=== PATIENT | male | born 1960 | race Caucasian/White ===

== ENCOUNTER 2021-03-23 05:57 | Outpatient (REF) | payer BC, SELFPAY ==
[2021-03-23 08:22] LABS: MANUAL DIFF FLAG NO
[2021-03-23 08:28] LABS: Basophils Absolute Auto 0.1 X10*3/uL (0.0-0.2); Basophils Percent Auto 2.2 % (0-2); Eosinophils Absolute Auto 0.4 X10*3/uL (0.0-0.4); Eosinophils Percent Auto 8.5 % (0-4); Hematocrit 41.3 % (42-52); Hemoglobin 13.7 g/dl (14.0-18.0); Lymphocytes Absolute Auto 1.2 X10*3/uL (1.2-4.9); Lymphocytes Percent Auto 26.2 % (20-40); Mean Corpuscular HGB Conc 33.2 g/dl (31.0-36.0); Mean Corpuscular Hemoglobin 31.2 pg (27.0-33.0); Mean Corpuscular Volume 94.1 fL (80-98); Mean Platelet Volume 10.3 fL (9.4-12.4); Monocytes Absolute Auto 0.5 X10*3/uL (0.1-1.2); Monocytes Percent Auto 10.8 % (2-11); Neutrophils Absolute Auto 2.3 X10*3/uL (2.0-8.3); Neutrophils Percent Auto 52.3 % (45-73); Platelet Count 189 X10*3/uL (160-400); Red Blood Count 4.39 X10*6/uL (4.60-5.80); Red Cell Distribution Width 11.8 % (11.0-16.0); White Blood Count 4.5 X10*3/uL (4.8-10.8)
[2021-03-23 08:45] LABS: Alanine Aminotransferase 19 U/L (0-40); Albumin Level 4.3 g/dL (3.5-5.0); Alkaline Phosphatase 75 U/L (39-117); Anion Gap 12 (12-20); Aspartate Amino Transferase 18 U/L (5-37); Bilirubin Total 0.6 mg/dL (0.0-1.0); Blood Urea Nitrogen 17 mg/dL (9-16); Carbon Dioxide 28 mmol/L (22-29); Chloride 107 mmol/L (96-108); Cholesterol 172 mg/dL; Estimated Glomerular Filt Rate > 60; Glucose Fasting 83 mg/dL (60-99); HDL Cholesterol 52 mg/dL; LDL Cholesterol Calculated 110 mg/dl; Potassium 4.2 mmol/L (3.3-5.1); Sodium 143 mmol/L (135-145); Total Protein 6.6 g/dL (6.5-8.0); Triglycerides 52 mg/dL
[2021-03-23 09:40] LABS: Prostate Specific Antigen Scr 5.22 ng/mL (<0.05-4.0)
== END 2021-03-23 05:58 | disposition home or self-care (01) ==
LOC: HO.LAB 05:57
PROVIDERS: PCP Internal Medicine; Visit Provider Internal Medicine
DX: Z00.00 Encounter for general adult medical examination without abnormal findings (principal); Z12.5 Encounter for screening for malignant neoplasm of prostate; R35.1 Nocturia; E11.9 Type 2 diabetes mellitus without complications
CPT/HCPCS: 36415; 80053; 80061; 84153; 85025

== ENCOUNTER → 2021-07-17 11:43 | Outpatient (REF) | payer BC, SELFPAY ==
--- NOTE | 2021-07-17 11:51 | ECG_ITS ---
Test Reason : preop Blood Pressure : / mmHG Vent. Rate : 058 BPM Atrial Rate : 058 BPM P-R Int : 176 ms QRS Dur : 090 ms QT Int : 410 ms P-R-T Axes : 083 064 061 degrees QTc Int : 402 ms Sinus bradycardia with Premature atrial complexes Otherwise normal ECG When compared with ECG of 06-MAR-2018 10:38, Premature atrial complexes are now Present Referred By: Issa Munoz Electronically Signed By:CINDI LUEVANO MD
[2021-07-17 11:56] LABS: MANUAL DIFF FLAG NO
[2021-07-17 12:10] LABS: Basophils Absolute Auto 0.1 X10*3/uL (0.0-0.2); Basophils Percent Auto 1.5 % (0-2); Eosinophils Absolute Auto 0.3 X10*3/uL (0.0-0.4); Eosinophils Percent Auto 7.2 % (0-4); Hematocrit 42.6 % (42.0-52.0); Hemoglobin 14.1 g/dl (14.0-18.0); Imm Gran Abs Auto 0.01 X10*3/uL (0.00-0.03); Imm Gran Pct Auto 0.2 % (0.0-0.4); Lymphocytes Absolute Auto 1.3 X10*3/uL (1.2-4.9); Lymphocytes Percent Auto 26.7 % (20-40); Mean Corpuscular HGB Conc 33.1 g/dl (31.0-36.0); Mean Corpuscular Hemoglobin 31.1 pg (27.0-33.0); Mean Platelet Volume 9.7 fL (9.4-12.4); Monocytes Absolute Auto 0.5 X10*3/uL (0.1-1.2); Monocytes Percent Auto 10.1 % (2-11); Neutrophils Absolute Auto 2.6 x10*3/uL (2.0-8.3); Neutrophils Percent Auto 54.3 % (45-73); Platelet Count 187 X10*3/uL (160-400); Red Blood Count 4.53 X10*6/uL (4.60-5.80); Red Cell Distribution Width 11.4 % (11.0-16.0); White Blood Count 4.8 X10*3/uL (4.8-10.8)
[2021-07-17 12:16] LABS: Prothrombin Time 10.8 SEC (9.9-13.0)
[2021-07-17 12:40] LABS: Anion Gap 10 (12-20); Blood Urea Nitrogen 17 mg/dL (9-16); Calcium 9.7 mg/dL (8.4-10.2); Carbon Dioxide 29 mmol/L (22-29); Chloride 107 mmol/L (96-108); Estimated Glomerular Filt Rate > 60; Glucose Random 107 mg/dL (60-115); Potassium 4.3 mmol/L (3.3-5.1); Sodium 142 mmol/L (135-145)
== END ==
LOC: HO.CARD 11:43
PROVIDERS: PCP Internal Medicine; Visit Provider Internal Medicine
DX: Z01.818 Encounter for other preprocedural examination (principal); Z13.0 Encounter for screening for diseases of the blood and blood-forming organs and certain disorders involving the immune mechanism; R51.9 Headache, unspecified
CPT/HCPCS: 36415; 80048; 85025; 85610; 93005

== ENCOUNTER 2021-07-18 13:06 | Outpatient (REF) | payer BC, SELFPAY ==
[2021-07-18 14:16] LABS: Appearance Urine CLEAR; Color Urine YELLOW; Glucose Urine UA NEG (NEG); Leukocyte Esterase Urine NEG (NEG); Nitrite Urine NEG (NEG); Urine Blood NEG (NEG); Urine Ketones NEG (NEG); Urine Protein NEG (NEG-TRACE)
== END 2021-07-18 13:07 | disposition home or self-care (01) ==
LOC: HO.LAB 13:06
PROVIDERS: Visit Provider Internal Medicine
DX: N39.0 Urinary tract infection, site not specified (principal)
CPT/HCPCS: 81003

== ENCOUNTER 2021-07-19 13:09 | Outpatient (REF) | payer BC, SELFPAY | END 2021-07-19 13:10 | disposition home or self-care (01) | LOC: HO.LAB 13:09 | PROVIDERS: Visit Provider Internal Medicine | DX: Z13.89 Encounter for screening for other disorder (principal) ==

== ENCOUNTER 2022-03-08 06:03 | Outpatient (REF) | payer BC, SELFPAY ==
[2022-03-08 06:08] LABS: MANUAL DIFF FLAG NO
[2022-03-08 07:24] LABS: Eosinophils Absolute Auto 0.2 X10*3/uL (0.0-0.4); Eosinophils Percent Auto 4.8 % (0-4); Hematocrit 41.2 % (42.0-52.0); Hemoglobin 14.1 g/dl (14.0-18.0); Imm Gran Abs Auto 0.02 X10*3/uL (0.00-0.03); Imm Gran Pct Auto 0.5 % (0.0-0.4); Lymphocytes Absolute Auto 1.3 X10*3/uL (1.2-4.9); Lymphocytes Percent Auto 29.9 % (20-40); Mean Corpuscular HGB Conc 34.2 g/dl (31.0-36.0); Mean Corpuscular Hemoglobin 31.8 pg (27.0-33.0); Mean Corpuscular Volume 92.8 fL (80.0-98.0); Mean Platelet Volume 9.5 fL (9.4-12.4); Monocytes Absolute Auto 0.6 X10*3/uL (0.1-1.2); Monocytes Percent Auto 13.3 % (2-11); Neutrophils Absolute Auto 2.1 x10*3/uL (2.0-8.3); Neutrophils Percent Auto 50.5 % (45-73); Platelet Count 182 X10*3/uL (160-400); Red Blood Count 4.44 X10*6/uL (4.60-5.80); Red Cell Distribution Width 11.5 % (11.0-16.0); White Blood Count 4.2 X10*3/uL (4.8-10.8)
[2022-03-08 07:44] LABS: Alanine Aminotransferase 19 U/L (0-40); Albumin Level 4.3 g/dL (3.5-5.0); Alkaline Phosphatase 66 U/L (39-117); Anion Gap 12 (12-20); Aspartate Amino Transferase 20 U/L (5-37); Bilirubin Total 0.7 mg/dL (0.0-1.0); Blood Urea Nitrogen 14 mg/dL (9-16); Calcium 8.8 mg/dL (8.4-10.2); Carbon Dioxide 29 mmol/L (22-29); Chloride 105 mmol/L (96-108); Cholesterol 178 mg/dL; Estimated Glomerular Filt Rate > 60; Glucose Fasting 84 mg/dL (60-99); HDL Cholesterol 57 mg/dL; LDL Cholesterol Calculated 107 mg/dl; Potassium 4.4 mmol/L (3.3-5.1); Sodium 142 mmol/L (135-145); Total Protein 6.5 g/dL (6.5-8.0); Triglycerides 73 mg/dL
== END 2022-03-08 06:04 | disposition home or self-care (01) ==
LOC: HO.LAB 06:03
PROVIDERS: PCP Internal Medicine; Visit Provider Internal Medicine
DX: Z13.0 Encounter for screening for diseases of the blood and blood-forming organs and certain disorders involving the immune mechanism (principal); E78.5 Hyperlipidemia, unspecified; I10 Essential (primary) hypertension
CPT/HCPCS: 36415; 80053; 80061; 85025

== ENCOUNTER 2022-03-26 10:42 | Outpatient (REF) | payer BC, SELFPAY ==
--- NOTE | ~2022-03-26 | US_ITS ---
EXAMINATION: US RETROPERITONEAL LIMITED (AORTA) CLINICAL INFORMATION: 61-year-old male with family history of abdominal aortic aneurysm.. COMPARISON: Abdominal aorta ultrasound from 03/07/2020. TECHNIQUE: Shaffer-scale, color Doppler and spectral Doppler evaluation of the abdominal aorta. FINDINGS: The abdominal aorta has normal caliber and smooth contour. No evidence of atherosclerotic disease, aneurysm or dissection. The peak systolic velocity measured in the distal abdominal aorta is 88 cm/sec. The measurements of the aorta in maximum AP and transverse dimensions respectively are as follows: Proximal: 2.5 x 2.4 cm. Mid: 2.1 x 2.3 cm. Distal: 1.9 x 2.0 cm. The common iliac arteries are normal. Each common iliac artery measures approximately 1.2 cm AP diameter. US/US abdominal aortic aneurysm IMPRESSION: No evidence of abdominal aorta aneurysm..
== END 2022-03-26 10:43 | disposition home or self-care (01) ==
LOC: HO.US 10:42
PROVIDERS: Visit Provider Internal Medicine
DX: Z13.6 Encounter for screening for cardiovascular disorders (principal)
CPT/HCPCS: 76706

== ENCOUNTER → 2022-04-09 10:51 | Outpatient (REF) | payer BC, SELFPAY | LOC: HO.SL 10:51 | PROVIDERS: PCP Internal Medicine; Visit Provider Internal Medicine | DX: G47.33 Obstructive sleep apnea (adult) (pediatric) (principal) | CPT/HCPCS: 95806 ==

== ENCOUNTER 2022-06-26 14:48 | Outpatient (REF) | payer BC, SELFPAY ==
--- NOTE | ~2022-06-26 | XR_ITS ---
EXAMINATION: XR SHOULDER, LEFT CLINICAL INFORMATION: Pain, left shoulder. COMPARISON: None TECHNIQUE: AP external rotation, Grashey, scapular Y, and axillary views of the left shoulder. FINDINGS: There is minimal reduction of glenohumeral and AC joint space with no periarticular spurring, erosive changes or loose bodies. No acute fracture, lytic or sclerotic process. The soft tissues are normal. XR/XR shoulder LT min 2V IMPRESSION: Minimal loss of joint space, ? early degenerative changes.
== END 2022-06-26 14:49 | disposition home or self-care (01) ==
LOC: HO.XRAY 14:48
PROVIDERS: PCP Internal Medicine; Visit Provider Internal Medicine
DX: M25.512 Pain in left shoulder (principal)
CPT/HCPCS: 73030

== ENCOUNTER → 2022-08-08 14:00 | Outpatient (BNVA) | payer BC, SELFPAY | PROVIDERS: PCP Internal Medicine; Visit Provider Physician Assistant | DX: M75.52 Bursitis of left shoulder (principal) | CPT/HCPCS: 20610; J1040 ==

== ENCOUNTER 2022-10-11 07:00 | Outpatient (RCR) | payer BC, SELFPAY ==
[2022-08-23 06:58] VITALS: BP 107/65; PULSE 84; O2SAT 97
--- NOTE | 2022-08-23 08:37 | MHC.PT.EP ---
[facility] [place] Office [place] Office [employer] Office [address] [place] [address] [address] [phone] F: [phone] F: [phone] F: [phone] F: [phone] Physical Therapy Plan of Care Date of Evaluation: Date of Surgery: Diagnosis: LEFT SHOULDER PAIN/ IMPINGEMENT Assessment: 62 YO Rt HAND DOMINANT MALE REF TO PT FOR LEFT SHOULDER PAIN/ IMPINGEMENT. 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 HE NOTES HIS Lt SH PAIN BEGAN IN 03/2020, INSIDUOUS ONSET. OBJECTIVELY, Pt HAS DECR POSTURAL AWARENESS-> (+) COMPENSATION W LUMBAR SPINE, Lt SH AND CERV ROM DEFICITS, (+) SOFT TISSUE TENSION AND IRRIT IN Lt SH COMPLEX, (+) IMPINGEMENT SIGNS Lt SH , AND PAIN IN LEFT ANTEROSUP GH REGION. HIS XRAY R/O SPURS. FUNCTIONALLY, Pt HAS DIFFIC SLEEPING, SXS WORSE AT NIGHT, LIMITED REACHING OVERHEAD OR POSTERIORLY, WELL DIFFIC DONNING SHIRTS / JACKETS/ TUCKING IN SHIRTS. Pt WOULD BENEFIT FROM PT TO ADDRESS THE ABOVE- ESPEC PAIN MGMT, DEV A PROGR HEP AND SELF-SX TECHN. Frequency and Duration: The patient will be seen 2 x WK x 5 WKS Short Term Goals: *DECREASE Lt SH PAIN TO A 2-3/10 *Pt DEMON WFL AROM CERVICAL AND Lt SH *IMPROVE POSTURAL AWARENESS W SITTING/ STANDING/ SIMUL ADLs *(-) Lt SH NEER'S SIGN Muffle Operator Goals: *Pt INDEP W PROGRESSIVE HEP AND SELF-SX MGMT TECHN *Pt RESUME REG ADLs, EVIDENT W IMPROVED SPADI SCORE (AT EVAL 81/130) *WFL STRENGTH Lt SH COMPLEX *Pt REPORT RETURN TO REG SLEEP Treatment Plan: Modalities to reduce pain, spasms and effusion. Manual therapy to restore motion and function. Therapeutic exercise to improve strength and flexibility. Neuromuscular re-education for posture and balance. Therapeutic activities to return to functional activities of daily living. Electronically signed by: DAPHNE DENSON,PT Please sign and return to therapist. Thank you for your referral.
--- NOTE | 2022-10-11 08:01 | MHC.PT.DC ---
[facility] [place] Office [place] Office [place] Office [address] Brittani Arias 140 [facility] [phone] F: [phone] F: [phone] F: [phone] F: [phone] Physical Therapy Discharge Report Diagnosis: LEFT SHOULDER PAIN/ IMPINGEMENT Date of Surgery: Date of Evaluation: 08/23/22 Date of Discharge: 10/11/22 Treatments to Date: 13 Cancellations to Date: 0 No Shows to Date: 0 Discharge Status: Achieved Goals Improved Function Independent with HEP Discharge Summary: Pt HAS PROGRESSED WELL IN PT- HE CAN NOW DON/DOFF SHIRTS/ JACKETS AND HAS OVERALL REDUCED PAIN AND LEFT SH LIMITATIONS W GENERAL ADLs- HE HAS RESIDUAL LEFT SH ROM LIMITATIONS , AND HE IS INDEP W HEP TO CONTINUE ADDRESSING THIS- Pt'S SPADI SCORE WAS 81/130 AT EVAL ON 08/23/22 AND AT D/C TODAY, 22/130. Electronically signed by: DAPHNE DENSON,PT Please sign and return to therapist. Thank you for your referral.
== END 2022-10-11 08:01 | disposition home or self-care (01) ==
LOC: HO.PT 07:00
PROVIDERS: PCP Internal Medicine; Visit Provider Physician Assistant
DX: M75.52 Bursitis of left shoulder (principal)
CPT/HCPCS: 97035; 97110; 97140; 97162

== ENCOUNTER 2023-03-06 08:47 | Outpatient (AMB) | payer BC, SELFPAY ==
--- NOTE | 2023-03-06 08:54 | MHC.PC.OV ---
Vital Signs 03/06/23 08:55 Height 5 ft 10 in Weight 153 lb 8 oz BMI 22.0 BP 100/60 Blood Pressure Location Lt brachial Position Sitting Pulse 54 Pulse Source Pulse Oximeter Pulse Oximetry (%) 98 Oxygen Delivery Method Room Air Intake Visit Reasons: Annual Exam Intake Note: Patient is here today for a physical. 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 Required: No Physical Medicine Teacher: Not Required per policy Accompanied by: Self / Same As Patient Allergies No Known Allergies Allergy (Verified 03/06/23 08:55) Tobacco use date assessed: 03/06/23 Dental Screening Dental Screen Date: 03/06/23 Did you have a dental visit in the last 12 months?: Yes Did you have a dental problem in the last 6 months where you did not have access to dental care?: No Was dental information given to patient?: Patient has dentist HPI Annual Exam HPI Details healthy; 1 s/p prostayectomy for CA; no recurrence [facility] Medical History (Updated 08/08/22 @ 15:24 by Gege Oliveira PA-C) Prostate cancer Surgical History (Updated 03/06/23 @ 08:58 by EVARISTO Chung) History of prostate surgery History of varicocele Family History Mother No problems noted. Father No problems noted. 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 1. Little interest or pleasure in doing things: not at all 2. Feeling down, depressed, or hopeless: not at all 3. Trouble falling or staying asleep, or sleeping too much: not at all 4. Feeling tired or having little energy: not at all 5. Poor appetite or overeating: not at all 6. Feeling bad about yourself - or that you are a failure or have let yourself or your family down: not at all 7. Trouble concentrating on things, such as reading the newspaper or watching television: not at all 8. Moving or speaking so slowly that other people could have noticed. Or the opposite - being so fidgety or restless that you have been moving around a lot more than usual: not at all 9. Thoughts that you would be better off or of hurting yourself in some way: not at all Total score: 0 Depression Screening Interpretation: Negative 66347 - PHQ-9 Billing: Yes Source: Developed by Drs. Adan Calvin, Chantel Zhu, Armond Meredith and colleagues, with an educational abigail from [employer]. Thrive Questionnaire Date Thrive assessed: 03/06/23 I am a: Patient What is your living situation today?: I have a steady place to live Within the past 12 months, did the food you bought not last and you didn't have the money to get more?: Never true Within the past 12 months, did you worry whether your food would run out before you got money to buy more?: Never true Do you have trouble paying for medicines?: No Do you have trouble getting transportation to medical appointments?: No Do you have trouble paying your heating and electricity bill?: No Do you have trouble taking care of your child, family member or friend?: No Do you have trouble with day-to-day activities such as bathing, preparing meals, shopping, managing finances, etc.?: No Are you currently unemployed and looking for a job?: No Are you interested in more education?: No Currently or been in a relationship where the following occur: no concerns reported AUDIT C Alcohol Use Questionnaire (AUDIT-C) 1. How often do you have a drink containing alcohol?: Never Total Score: 0 Score Reviewed/Action Taken: Yes CARYL-7 AMB Questionnaire CARYL-7 Date CARYL - 7 assessed: 03/06/23 Feeling nervous, anxious, or on edge: 0 = Not at all Not being able to stop or control worryin = Not at all Worrying too much about different things: 0 = Not at all Trouble relaxin = Not at all Being so restless that it is hard to sit still: 0 = Not at all Becoming easily annoyed or irritable: 0 = Not at all Feeling afraid as if something awful might happen: 0 = Not at all Total CARYL-7 score (0-4 normal; 5-9 mild; 10-14 moderate; 15-21 severe): 0 Source: Developed by Drs. Adan Calvin, Chantel Zhu, Armond Meredith and colleagues, with an educational abigail from [employer]. CARYL-7 Assessment Billing CARYL-7 Assessment Tool: CARYL-7 Assessment 17732 Review of Systems Const Denies chills, Denies fatigue, Denies headache(s) and Denies weight loss Eyes Denies change in vision, Denies diplopia and Denies eye pain ENT Denies vertigo, Denies dizziness, Denies headache(s) and Denies nasal discharge Card Denies chest pain, Denies rapid heart rate and Denies dyspnea on exertion Resp Denies chest congestion, Denies cough, Denies pain with cough and Denies dyspnea on exertion GI Denies abdominal pain, Denies hematochezia and Denies change in bowel habits Musc Denies myalgias, Denies arthralgias and Denies joint swelling Skin/Breast Denies lesions and Denies unusual bruising Neuro Denies vertigo, Denies dizziness, Denies headache(s) and Denies focal weakness Endo Denies fatigue Physical exam (Primary Care) Vital Signs: Last Vital Signs Pulse 54 03/06/23 08:55 BP 100/60 03/06/23 08:55 Pulse Ox 98 03/06/23 08:55 Oxygen Delivery Method Room Air 03/06/23 08:55 BMI result Body Mass Index 22.0 Tobacco/Smoking Status: Tobacco use Status Tobacco use date assessed 03/06/23 03/06/23 09:00 Patient Tobacco Use Status Never used Tobacco 03/06/23 09:00 e-Cigarette/Vaping Use Never Used 03/06/23 09:00 PHQ-9: PHQ-9 Score PHQ-9: Total score 0 03/06/23 09:00 Depression Screening Interpretation: Negative Thrive Assessment: Date of Thrive Assessment Date Thrive assessed 03/06/23 03/06/23 09:00 Currently or been in a relationship where the following occur: no concerns reported Advance Care Planning discussion: On file, no changes Forms completed: Health Care Proxy Const General: cooperative, healthy appearing and no acute distress Orientation/consciousness: oriented to person, oriented to place and oriented to time HENMT Head: Yes normal to inspection, Yes normocephalic and Yes atraumatic Mouth: Normal oral and palatal mucosa present and tongue normal Throat: Yes posterior oropharynx normal and Yes uvula midline Eyes General: appearance normal, both eyes and all related structures Neck Neck: Yes normal visual inspection, Yes full ROM and Yes no lymphadenopathy Thyroid: Thyroid normal Carotids: normal carotid upstroke Chest Chest palpation & inspection: normal inspection of the chest Resp Effort & Inspection: normal respiratory effort and able to speak in complete sentences Auscultation: clear to auscultation bilaterally Cardio Jugular venous distension: no JVD Palpation: normal PMI Rate: regular rate Rhythm: regular rhythm Heart sounds: S1 normal heart sound present and S2 normal heart sound present GI Inspection: Yes normal to inspection Palpation (GI): Soft to palpation and No hepatosplenomegaly present Auscultation: normal bowel sounds General: Yes no CVA tenderness Back/Spine/Pelvis Back: no CVA tenderness Skin General skin exam: no rashes or lesions noted Neuro General: oriented to person, oriented to place and oriented to time Extrem General: Yes normal to inspection and Yes full ROM Assessment and Plan Assessment & Plan (1) Physical exam, annual: Code(s): Z00.00 - Encounter for general adult medical examination without abnormal findings Plan: healthy; do labs (2) Prostate cancer: Code(s): C61 - Malignant neoplasm of prostate Orders: Orders Comprehensive [place]. Panel Fast Today N28.9 - Disorder of kidney and ureter, unspecified Lipid Panel Today E78.5 - Hyperlipidemia, unspecified Complete Blood Count Auto Diff Today D64.9 - Anemia, unspecified Coding Level of Care Code Est Pt Prev Care 40-64y(31081) Diagnoses Physical exam, annual Z00.00 Prostate cancer C61 Additional Codes CARYL-7 Assessment Billing - CARYL-7 Assessment Tool: CARYL-7 Assessment 44400 ([id number]) Vital Signs *Quality* - Advance Care Planning discussion: On file, no changes ([id number])
[2023-03-06 08:55] VITALS: BP 100/60; PULSE 54; O2SAT 98; BMI 22.0
== END 2023-03-06 09:28 | disposition home or self-care (01) ==
PROVIDERS: PCP Internal Medicine; Visit Provider Internal Medicine
DX: Z00.00 Encounter for general adult medical examination without abnormal findings (principal); C61 Malignant neoplasm of prostate
CPT/HCPCS: 1123F; 99396

== ENCOUNTER 2023-03-07 05:58 | Outpatient (REF) | payer BC, SELFPAY ==
[2023-03-07 06:14] LABS: MANUAL DIFF FLAG NO
[2023-03-07 07:22] LABS: Basophils Absolute Auto 0.1 X10*3/uL (0.0-0.2); Basophils Percent Auto 1.8 % (0-2); Eosinophils Absolute Auto 0.2 X10*3/uL (0.0-0.4); Eosinophils Percent Auto 4.9 % (0-4); Hematocrit 41.7 % (42.0-52.0); Imm Gran Abs Auto 0.01 X10*3/uL (0.00-0.03); Imm Gran Pct Auto 0.3 % (0.0-0.4); Lymphocytes Absolute Auto 1.1 X10*3/uL (1.2-4.9); Lymphocytes Percent Auto 27.6 % (20-40); Mean Corpuscular HGB Conc 33.6 g/dl (31.0-36.0); Mean Corpuscular Hemoglobin 31.5 pg (27.0-33.0); Mean Corpuscular Volume 93.7 fL (80.0-98.0); Mean Platelet Volume 9.8 fL (9.4-12.4); Monocytes Absolute Auto 0.5 X10*3/uL (0.1-1.2); Monocytes Percent Auto 12.8 % (2-11); Neutrophils Percent Auto 52.6 % (45-73); Platelet Count 194 X10*3/uL (160-400); Red Blood Count 4.45 X10*6/uL (4.60-5.80); Red Cell Distribution Width 11.4 % (11.0-16.0); White Blood Count 3.8 X10*3/uL (4.8-10.8)
[2023-03-07 07:38] LABS: Alanine Aminotransferase 15 U/L (0-40); Albumin Level 4.2 g/dL (3.5-5.0); Alkaline Phosphatase 62 U/L (39-117); Anion Gap 13 (12-20); Aspartate Amino Transferase 16 U/L (5-37); Bilirubin Total 0.9 mg/dL (0.0-1.0); Blood Urea Nitrogen 16 mg/dL (9-16); Calcium 9.2 mg/dL (8.4-10.2); Carbon Dioxide 26 mmol/L (22-29); Chloride 107 mmol/L (96-108); Cholesterol 172 mg/dL; Estimated Glomerular Filt Rate > 60; Glucose Fasting 83 mg/dL (60-99); HDL Cholesterol 50 mg/dL; LDL Cholesterol Calculated 108 mg/dl; Potassium 4.1 mmol/L (3.3-5.1); Sodium 142 mmol/L (135-145); Total Protein 6.8 g/dL (6.5-8.0); Triglycerides 73 mg/dL
== END 2023-03-07 05:59 | disposition home or self-care (01) ==
LOC: HO.LAB 05:58
PROVIDERS: PCP Internal Medicine; Visit Provider Internal Medicine
DX: N28.9 Disorder of kidney and ureter, unspecified (principal); E78.5 Hyperlipidemia, unspecified; D64.9 Anemia, unspecified
CPT/HCPCS: 36415; 80053; 80061; 85025

== ENCOUNTER 2024-03-09 08:40 | Outpatient (AMB) | payer BC, SELFPAY ==
--- NOTE | 2024-03-09 09:09 | A.OFFPC_ITS ---
Vital Signs 03/09/24 09:11 Height 5 ft 10 in Weight 150 lb BMI 21.5 BP 102/60 Blood Pressure Location Lt brachial Position Sitting Pulse 56 Pulse Source Pulse Oximeter Pulse Oximetry (%) 99 Oxygen Delivery Method Room Air Intake Visit Reasons: pe Intake Note: Patient is here today for a physical. Funeral Pre Need Consultant Required: No Accompanied by: Self / Same As Patient Allergies No Known Allergies Allergy (Verified 03/09/24 09:10) Tobacco use date assessed: 03/09/24 Fall risk assessment: No Falls in past year Last assessed Fall Risk: 03/09/24 Dental Screening Dental Screen Date: 03/09/24 Did you have a dental visit in the last 12 months?: Yes Did you have a dental problem in the last 6 months where you did not have access to dental care?: No Was dental information given to patient?: Patient has dentist HPI pe HPI Details healthy; concern re sleep apnea with apnea and snoring; FH AAA but he has no other risk factors; had an US a few years back which was normal [facility] Medical History (Updated 08/08/22 @ 15:24 by Gege Oliveira PA-C) Prostate cancer Surgical History History of prostate surgery History of varicocele Family History Mother No problems noted. Father No problems noted. 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 1. Little interest or pleasure in doing things: not at all 2. Feeling down, depressed, or hopeless: not at all 3. Trouble falling or staying asleep, or sleeping too much: not at all 4. Feeling tired or having little energy: not at all 5. Poor appetite or overeating: not at all 6. Feeling bad about yourself - or that you are a failure or have let yourself or your family down: not at all 7. Trouble concentrating on things, such as reading the newspaper or watching television: not at all 8. Moving or speaking so slowly that other people could have noticed. Or the opposite - being so fidgety or restless that you have been moving around a lot more than usual: not at all 9. Thoughts that you would be better off or of hurting yourself in some way: not at all Total score: 0 Depression Screening Interpretation: Negative Depression Screening Done: Yes 48937 - PHQ-9 Billing: Yes Source: Developed by Drs. Adan Calvin, Chantel Zhu, Armond Meredith and colleagues, with an educational abigail from [employer]. Thrive Questionnaire Date Thrive assessed: 03/09/24 I am a: Patient What is your living situation today?: I have a steady place to live Within the past 12 months, did the food you bought not last and you didn't have the money to get more?: Never true Within the past 12 months, did you worry whether your food would run out before you got money to buy more?: Never true Do you have trouble paying for medicines?: No Do you have trouble getting transportation to medical appointments?: No Do you have trouble paying your heating and electricity bill?: No Do you have trouble taking care of your child, family member or friend?: No Do you have trouble with day-to-day activities such as bathing, preparing meals, shopping, managing finances, etc.?: No Are you currently unemployed and looking for a job?: No Are you interested in more education?: No Please select the resources that you would like help with: None Currently or been in a relationship where the following occur: No concerns reported THRIVE Score: 0 AUDIT C Alcohol Use Questionnaire (AUDIT-C) 1. How often do you have a drink containing alcohol?: Never 3. How often do you have six or more drinks on one occasion?: Never Total Score: 0 Score Reviewed/Action Taken: Yes CARYL-7 AMB Questionnaire CARYL-7 Date CARYL - 7 assessed: 03/09/24 Feeling nervous, anxious, or on edge: 0 = Not at all Not being able to stop or control worryin = Not at all Worrying too much about different things: 0 = Not at all Trouble relaxin = Not at all Being so restless that it is hard to sit still: 0 = Not at all Becoming easily annoyed or irritable: 0 = Not at all Feeling afraid as if something awful might happen: 0 = Not at all Total CARYL-7 score (0-4 normal; 5-9 mild; 10-14 moderate; 15-21 severe): 0 Source: Developed by Drs. Adan Calvin, Chantel Zhu, Armond Meredith and colleagues, with an educational abigail from [employer]. CARYL-7 Assessment Billing CARYL-7 Assessment Tool: CARYL-7 Assessment 43858 Review of Systems Const Denies chills, Denies fatigue, Denies headache(s) and Denies weight loss Eyes Denies change in vision, Denies diplopia and Denies eye pain ENT Denies vertigo, Denies dizziness, Denies headache(s) and Denies nasal discharge Card Denies chest pain, Denies rapid heart rate and Denies dyspnea on exertion Resp Denies chest congestion, Denies cough, Denies pain with cough and Denies dyspnea on exertion GI Denies abdominal pain, Denies hematochezia and Denies change in bowel habits Musc Denies myalgias, Denies arthralgias and Denies joint swelling Skin/Breast Denies lesions and Denies unusual bruising Neuro Denies vertigo, Denies dizziness, Denies headache(s) and Denies focal weakness Endo Denies fatigue Physical exam (Primary Care) Vital Signs: Last Vital Signs Pulse 56 03/09/24 09:11 BP 102/60 03/09/24 09:11 Pulse Ox 99 03/09/24 09:11 Oxygen Delivery Method Room Air 03/09/24 09:11 BMI result Body Mass Index 21.5 Tobacco/Smoking Status: Tobacco use Status Tobacco use date assessed 03/09/24 03/09/24 09:13 Patient Tobacco Use Status Never used Tobacco 03/09/24 09:13 e-Cigarette/Vaping Use Never Used 03/09/24 09:13 PHQ-9: PHQ-9 Score PHQ-9: Total score 0 03/09/24 09:13 Depression Screening Interpretation: Negative Thrive Assessment: Date of Thrive Assessment Date Thrive assessed 03/09/24 03/09/24 09:13 Currently or been in a relationship where the following occur: No concerns reported Const General: cooperative, healthy appearing and no acute distress Orientation/consciousness: oriented to person, oriented to place and oriented to time HENMT Head: Yes normal to inspection, Yes normocephalic and Yes atraumatic Mouth: Normal oral and palatal mucosa present and tongue normal Throat: Yes posterior oropharynx normal and Yes uvula midline Eyes General: appearance normal, both eyes and all related structures Neck Neck: Yes normal visual inspection, Yes full ROM and Yes no lymphadenopathy Thyroid: Thyroid normal Carotids: normal carotid upstroke Chest Chest palpation & inspection: normal inspection of the chest Resp Effort & Inspection: normal respiratory effort and able to speak in complete sentences Auscultation: clear to auscultation bilaterally Cardio Jugular venous distension: no JVD Palpation: normal PMI Rate: regular rate Rhythm: regular rhythm Heart sounds: S1 normal heart sound present and S2 normal heart sound present GI Inspection: Yes normal to inspection Palpation (GI): Soft to palpation and No hepatosplenomegaly present Auscultation: normal bowel sounds General: Yes no CVA tenderness Back/Spine/Pelvis Back: no CVA tenderness Skin General skin exam: no rashes or lesions noted Neuro General: oriented to person, oriented to place and oriented to time Extrem General: Yes normal to inspection and Yes full ROM Assessment and Plan Assessment & Plan (1) Physical exam, annual: Code(s): Z00.00 - Encounter for general adult medical examination without abnormal findings Plan: do labs (2) Apnea: Code(s): R06.81 - Apnea, not elsewhere classified Plan: repeat sleep study Orders: Orders Thyroid Stimulating Hormone Today Z13.29 - Encounter for screening for other suspected endocrine disorder Complete Blood Count Auto Diff Today Z13.0 - Encounter for screening for diseases of the blood and blood-forming organs and certain disorders involving the immune mechanism Prostate Specific Antigen Scr Today Z00.00 - Encounter for general adult medical examination without abnormal findings RT home sleep study Today R06.81 - Apnea, not elsewhere classified Lipid Panel Today Z13.220 - Encounter for screening for lipoid disorders Comprehensive [place]. Panel Fast Today Z13.9 - Encounter for screening, unspecified Coding Level of Care Code Est Pt Prev Care 40-64y(81836) Diagnoses Physical exam, annual Z00.00 Apnea R06.81 Additional Codes CARYL-7 Assessment Billing - CARYL-7 Assessment Tool: CARYL-7 Assessment 49194 ([id number])
[2024-03-09 09:11] VITALS: BP 102/60; PULSE 56; O2SAT 99; BMI 21.5
== END 2024-03-09 09:32 | disposition home or self-care (01) ==
PROVIDERS: PCP Internal Medicine; Visit Provider Internal Medicine
DX: Z00.00 Encounter for general adult medical examination without abnormal findings (principal); R06.81 Apnea, not elsewhere classified
CPT/HCPCS: 99396

== ENCOUNTER 2024-03-10 06:03 | Outpatient (REF) | payer BC, SELFPAY ==
[2024-03-10 06:25] LABS: MANUAL DIFF FLAG NO
[2024-03-10 07:12] LABS: Basophils Absolute Auto 0.1 X10*3/uL (0.0-0.2); Basophils Percent Auto 1.5 % (0-2); Eosinophils Absolute Auto 0.3 X10*3/uL (0.0-0.4); Hematocrit 40.1 % (42.0-52.0); Hemoglobin 13.9 g/dl (14.0-18.0); Imm Gran Abs Auto 0.02 X10*3/uL (0.00-0.03); Imm Gran Pct Auto 0.4 % (0.0-0.4); Lymphocytes Absolute Auto 1.1 X10*3/uL (1.2-4.9); Lymphocytes Percent Auto 24.6 % (20-40); Mean Corpuscular HGB Conc 34.7 g/dl (31.0-36.0); Mean Corpuscular Hemoglobin 32.4 pg (27.0-33.0); Mean Corpuscular Volume 93.5 fL (80.0-98.0); Mean Platelet Volume 9.5 fL (9.4-12.4); Monocytes Absolute Auto 0.6 X10*3/uL (0.1-1.2); Monocytes Percent Auto 12.9 % (2-11); Neutrophils Absolute Auto 2.4 x10*3/uL (2.0-8.3); Neutrophils Percent Auto 53.6 % (45-73); Platelet Count 215 X10*3/uL (160-400); Red Blood Count 4.29 X10*6/uL (4.60-5.80); Red Cell Distribution Width 11.6 % (11.0-16.0); White Blood Count 4.6 X10*3/uL (4.8-10.8)
[2024-03-10 07:47] LABS: Alanine Aminotransferase 17 U/L (0-40); Albumin Level 4.3 g/dL (3.5-5.0); Alkaline Phosphatase 56 U/L (39-117); Anion Gap 10 (12-20); Aspartate Amino Transferase 19 U/L (5-37); Bilirubin Total 0.6 mg/dL (0.0-1.0); Blood Urea Nitrogen 19 mg/dL (9-16); Carbon Dioxide 30 mmol/L (22-29); Chloride 108 mmol/L (96-108); Cholesterol 168 mg/dL (<200); Estimated Glomerular Filt Rate > 60; Glucose Fasting 88 mg/dL (60-99); HDL Cholesterol 52 mg/dL (>40); LDL Cholesterol Calculated 105 mg/dL (<100); Potassium 3.9 mmol/L (3.3-5.1); Sodium 144 mmol/L (135-145); Total Protein 6.6 g/dL (6.5-8.0); Triglycerides 59 mg/dL (<150)
[2024-03-10 08:02] LABS: Thyroid Stimulating Hormone 1.96 uIU/mL (0.32-4.0)
[2024-03-10 08:13] LABS: Prostate Specific Antigen Scr < 0.10 ng/mL (<0.05-4.0)
== END 2024-03-10 06:04 | disposition home or self-care (01) ==
LOC: HO.LAB 06:03
PROVIDERS: PCP Internal Medicine; Visit Provider Internal Medicine
DX: Z00.00 Encounter for general adult medical examination without abnormal findings (principal); Z13.29 Encounter for screening for other suspected endocrine disorder; Z13.0 Encounter for screening for diseases of the blood and blood-forming organs and certain disorders involving the immune mechanism; Z13.220 Encounter for screening for lipoid disorders; Z13.9 Encounter for screening, unspecified; Z12.5 Encounter for screening for malignant neoplasm of prostate
CPT/HCPCS: 36415; 80053; 80061; 84153; 84443; 85025

== ENCOUNTER 2024-04-13 08:27 | Day surgery (SDC) | payer BC, SELFPAY ==
[2024-04-09 14:10] VITALS: BMI 20.7
--- NOTE | 2024-04-12 09:03 | P.CONAN_ITS ---
Documented by User: Sarah Richmond NP 04/12/24 09:04 HPI - Anesthesia Eval Consult details Narrative: 63yo M for Colonoscopy PMFSH Active Problems Active Problems: All Active Problems Subacromial bursitis of left shoulder joint (Acute) Shoulder pain (Acute) Pre-op exam (Acute) Physical exam, annual (Acute) Prostate cancer (Acute) Past Medical History Medical History Depression Prostate cancer Family History Family History Mother No problems noted. Father No problems noted. 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 Cognitive needs: No Hearing needs: No Vision needs: No Meds Allergies Allergy/AdvReac Type Severity Reaction Status Date / Time No Known Allergies Allergy Verified 04/13/24 09:05 Home Medications ?Medication ?Instructions ?Recorded ?Confirmed ?Last Taken ?Type multivitamin 1 tab PO DAILY 04/09/24 04/13/24 Unknown History Exam Height,Weight and Vital Signs: Height 5 ft 11.75 in Weight 68.719 kg Pertinent Lab Results Pertinent Lab Results: Laboratory Tests 03/10/24 06:24 WBC 4.6 L Hgb 13.9 L Hct 40.1 L Plt Count 215 Sodium 144 Potassium 3.9 Chloride 108 Carbon Dioxide 30 H BUN 19 H Creatinine 1.04 Assessment and Plan Assessment Anesthesia Assessment: Chart Reviewed Documented by User: Nikki Gardner MD 04/13/24 09:59 PMFSH Past Medical History Medical History Depression Prostate cancer Family History Family History Mother No problems noted. Father No problems noted. Family history of problems with anesthesia: No Surgical History Surgical History Hx of bilateral cataract extraction History of surgery Hx of right knee surgery H/O colonoscopy History of prostate surgery History of varicocele History of Problems with Anesthesia: No Social History Social History Housing: House Are you a primary healthcare insurance sales agent to a significant other at home: No Do you presently have visiting nurse or other home services: No Alcohol intake: never Patient Tobacco Use Status: Never used Tobacco e-Cigarette/Vaping Use: Never Used Second Hand Smoke Exposure: No service: No Current occupational status: employed 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 Cognitive needs: No Hearing needs: No Vision needs: No Meds Allergies Allergy/AdvReac Type Severity Reaction Status Date / Time No Known Allergies Allergy Verified 04/13/24 09:05 Home Medications ?Medication ?Instructions ?Recorded ?Confirmed ?Last Taken ?Type multivitamin 1 tab PO DAILY 04/09/24 04/13/24 Unknown History Exam Height,Weight and Vital Signs: Height 5 ft 11.75 in Weight 68.719 kg Vital Signs Temp Pulse Resp BP Pulse Ox O2 Del Method 04/13/24 09:32 97.5 F 58 18 114/54 L 100 Room Air Airway Mallampati Class: II TM Dist: >3cm Neck ROM: Full Loose/Missing/Broken Teeth: No Heart: RRR Lungs: CTAB Assessment and Plan Assessment Anesthesia Assessment: Anesthesia Plan Discussed and Chart Reviewed Final Anesthetic Review Family History of Problems with Anesthesia: No History of Problems with Anesthesia: No NPO: Yes ASA Class: II Final Preanesthetic Review: No Changes in Pt Med Stat, Meds/Allgs Chart Reviewed, Consent Obtained/Reviewed and Anes Risks/Benef Reviewed Patient Risk: Low Procedure Risk: Low Assessment/Block/Sedation in SS: Assess/Block/Sedation-SS Anesthetic Plan Anesthetic Plan: TIVA Disposition: Standard PACU
[2024-04-13 09:06] VITALS: BMI 19.8
[2024-04-13 09:32] VITALS: BP 114/54; PULSE 58; RESP 18; TEMP 36.4; O2SAT 100
--- NOTE | 2024-04-13 09:56 | P.HPSUR_ITS ---
Pre-Procedural Eval Section A - 24 Hr Update-Section A only Date of Service: 04/13/24 Section B - Complete if H&P > 30 days Chief Complaint: Encounter for screening for malignant neoplasm of Details of Present Illness: see H&P no changes Relevant Family History (Specify if Yes): No Relevant Social History: None Present Medications: see Short Stay Collaborative assessment Medical History: No relevant PMH History of Previous Operations: No relevant previous surgery Allergies: Allergies Allergy/AdvReac Type Severity Reaction Status Date / Time No Known Allergies Allergy Verified 04/13/24 09:05 Review of Systems Sugical H&P ROS: Negative: Constitution, Cardiovascular, Respiratory, Neurological, Psychiatric, Hem-Onc, Allergic/Immunologic, Gastrointestinal, Genitourinary, Musculoskeletal, Integumentary, Endocrine and Eyes/Ears/No se/Throat Exam Surgical H&P Exam: Normal: HEENT, Normal: Heart, Normal: Lungs, Normal: Extremities, Normal: Abdomen, Normal: Skin and Normal: Neurological Plan Diagnosis/Plan: Unchanged I have reviewed the history and physical and performed a pertinent physical examination on my patient. No changes have occurred unless specified. Time Spent With Patient Time: Total time managing care of this patient today ____ minutes.
[2024-04-13 10:57] VITALS: BP 106/58; PULSE 68; RESP 14; TEMP 36.3; O2SAT 100
[2024-04-13 11:02] VITALS: BP 101/60; PULSE 66; RESP 15; O2SAT 100
[2024-04-13 11:07] VITALS: BP 124/62; PULSE 56; RESP 14; O2SAT 100
[2024-04-13 11:12] VITALS: BP 114/71; PULSE 58; RESP 16; TEMP 36.2; O2SAT 100
--- NOTE | 2024-04-13 11:14 | OP_ITS ---
DATE OF SERVICE: 04/13/2024 SURGEON: Jv Lees MD INDICATIONS: Colon cancer screening. PREOPERATIVE DIAGNOSIS: POSTOPERATIVE DIAGNOSIS: PROCEDURE PERFORMED: Colonoscopy to the terminal ileum with biopsy and snare polypectomy. ESTIMATED BLOOD LOSS: COMPLICATIONS: ANESTHESIA: Monitored anesthesia care. ASSISTANTS: SPECIMENS: DESCRIPTION OF PROCEDURE: A history and physical was performed. The risks and benefits of the procedure were explained to the patient and informed consent was obtained. The patient was placed in the left lateral decubitus position. A digital rectal exam was performed and was found to be normal. The Olympus pediatric video colonoscope was introduced into the rectum and advanced to the cecum. The cecum was identified by transillumination, palpation, and identification of ileocecal valve. Examination was performed and the scope was removed. He tolerated the procedure well and was returned to recovery area in stable condition. FINDINGS: The terminal ileum was examined and appeared normal. The visualized colonic mucosa was normal. The quality of the prep was good. Two polyps were identified. These were located in the rectum. The 1st measured less than 5 mm and was removed with the biopsy forceps. The 2nd measured approximately 8 mm and removed with hot snare and recovered via suction. No other polyps were identified. Retroflexed examination showed small internal hemorrhoids. IMPRESSION: Colon polyps. RECOMMENDATION: Follow up the biopsy results. MD MESSI Andre/MINESH / [id number]
== END 2024-04-13 11:32 | disposition home or self-care (01) ==
PROVIDERS: PCP Internal Medicine; Visit Provider Internal Medicine Gastroenterology
PROC: 0DJD8ZZ Inspection of Lower Intestinal Tract, Via Natural or Artificial Opening Endoscopic (ICD-10-PCS; CPT 45378; principal; 2024-04-13 10:00)
DX: Z12.11 Encounter for screening for malignant neoplasm of colon (principal); Z83.719 Family history of colon polyps, unspecified; D12.8 Benign neoplasm of rectum; K64.8 Other hemorrhoids; F32.A Depression, unspecified; Z85.46 Personal history of malignant neoplasm of prostate; Z98.890 Other specified postprocedural states
CPT/HCPCS: 45385; 45380; 88305; J2704

== ENCOUNTER → 2024-04-21 09:53 | Outpatient (REF) | payer BC, SELFPAY | LOC: HO.SL 09:53 | PROVIDERS: PCP Internal Medicine; Visit Provider Internal Medicine | DX: G47.10 Hypersomnia, unspecified (principal) | CPT/HCPCS: 95806 ==

== ENCOUNTER → 2024-04-21 10:08 | Outpatient (BNV) | payer BC, SELFPAY | PROVIDERS: PCP Internal Medicine; Visit Provider Psychiatry & Neurology Neurology | DX: G47.10 Hypersomnia, unspecified (principal); R06.83 Snoring | CPT/HCPCS: 95806 ==

== ENCOUNTER 2024-11-15 09:19 | Outpatient (REF) | payer BC, MEDICARE, SELFPAY ==
--- OUTSIDE RECORDS SUMMARY | 2024-11-15 10:20 | XMS_ITS ---
Author Organization [facility] Address [address] [place] [address] Care Team Providers Care Gold Leaf Roller Name Role Phone Issa Munoz MD Primary Care Provider Jv Salinas Jr Encounters Encounter Location Date Provider Diagnosis [facility] [address] [place] [phone] 04/12/2024 Jv Lees Jr Plan Of Treatment No Information Progress Notes * REGINA DAVIS NDOB:[birth year] (63 yo M)Acc No.[id number]:04/12/2024 Patient:?REGINA DAVIS :1960???Age:63 Y???Sex:Male Address:[address] [place] [address] * true * Date:? Generated for Cordell patterson/[place]/eTransmitting on:?11/15/2024 10:20 AM EDT
--- OUTSIDE RECORDS SUMMARY | 2024-11-15 10:20 | XMS_ITS ---
Author Organization [facility] Address [address] [place] [address] Care Team Providers Care Sock Liner Name Role Phone Alexander MORRIS, Issa Primary Care Provider Jv Salinas Jr [phone] REASON FOR VISIT screening colon Encounters Encounter Location Date Provider Diagnosis [facility] [place] [place] [address] [place] [phone] 04/13/2024 Jv Lees Jr Colon cancer screening [...] REGINA DAVIS NDOB:[birth year] (64 yo M)Acc No.[id number]:04/13/2024 COLON WITH MAC Patient:?REGINA DAVIS Provider:?Jv Lees MD :1960???Age:63 Y???Sex:Male Mihir e:04/13/2024 Address:[address] [id number] Pcp:Issa Munoz MD Subjective: * Chief Complaints: * ???1. Screening colon. * Medical History:? Objective: * Vitals:? Assessment: * Assessment: 1.?Colon cancer screening - Z12.11 (Primary)???2.?FH: colon polyps - Z83.719???3.?Colon polyps - K63.5??? Plan: * Treatment: * Procedure Codes:?85113 LESIO N REMOVAL COLONOSCOPY, 52569 COLONOSCOPY AND BIOPSY, Modifiers: 59 * * The named appointment provid er may or may not be the originator of this progress note, and it is not deemed complete until electronically signed by the appointment provider. Sign off status: Pending * Provider:?Jv Lees MD Date:?0 04/13/2024 Generated for Cordell patterson/[place]/eTransmitting on:?11/15/2024 10:20 AM EDT
--- OUTSIDE RECORDS SUMMARY | 2024-11-15 10:21 | XMS_ITS | Patient Health Record ---
Author Organization [facility] Address [address] [place] [address] Care Team Providers Care Machine Shop Supervisor Name Role Phone Alexander MORRIS, Hardin Primary Care Provider Jv Salinas Jr [phone] Allergies No Known Allergies Results Component Value Reference Range Notes Pathology Reviewed date:04/22/2024 07:59:50 AM Interpretation: Performing Lab:[facility], [address] [place] [phone] Notes/Report: Name: Reginald Davis Age/Sex: 63/M : 1960 Unit#: [id number] Attend Dr: Jv Lees MD Re04/13/24 Status : [facility] Location: [place] Disch: SPEC : [id number] RECD : 04/13/24-1116 STATUS: PRINCESS VIVEROS NUM: [id number] MUKESH: 04/13/24-[address] [facility] [address]: Jv Lees MD ENTERED: 04/13/24-06 25 SP TYPE: Surgical OTHR DR: Issa Munoz MD ORDERED: HE Stain/6, Gross Micro L4/2 Diagnosis A. Rectum, #1 polyp ectomy: Hyperplastic mucosal polyp. B. Rectum, #2 polype ctomy: Sessile serrated lesion/polyp; negative for cytologic dysplasia. Clinical History Pre-Op Dx: Screening Post-Op Dx: Colon polyps Microscopic Description A, B. Microscopic se ctions reviewed. Material Received A. Rectal polyp #1 B. Rectal polyp #2 Gross Description Received in two parts. Part A: Received in formalin labeled ?rectal polyp #1? are 2 hyperemic and congested, fuentes, pink-red irregular t issue fragments each measuring 0.25 cm, submitted in toto in a cassette labeled A. Part B: Received in formalin labeled ?rectal polyp #2? is a 0.6 cm hyperemic and congested, pink-red papular tis santi fragment, bisected and entirely submitted in a cassette labeled B. CEDS Copies To: Jv Lees MD [facility] [address] [place], [place] [id number] CONTINUED ON NEXT PAGE Name: Reginald Davis Santi Age/Sex: 63/M : 1960 Unit#: [id number] Attend Dr: Jv Lees MD Re04/13/24 Status : [facility] Location: [place] Disch: SPEC : [id number] RECD : 04/13/24 STATUS: PRINCESS VIVEROS NUM: [id number] MUKESH: 04/13/24-[address] [facility] [address]: Jv Lees MD ENTERED: 04/13/24 SP TYPE: Surgical OTHR DR: Issa Munoz MD ORDERED: HE Stain/6, Gross Micro L4/2 Copies To: (Continued) Issa Munoz MD [facility] [place] [place] Primary Care,[address] [place] [address] Signed (si gnature on file) Ariel Bonds MD 04/14/24 1555 END OF REPORT Reason For Referral No Information Medications Medication SIG (Take, Route, Frequency, Duration) Notes Start Date End Date Status Multi Vitamin/Minerals - 1 tablet Orally once a day Active MiraLax (colon prep) 17 GM/SCOOP mixed with Gatorade or Crystal Light Orally begin at 5:00 p.m. the day before the procedure for 1 day 02/18/2024 Active Immunizations Vaccine Route Administration Date Status Comme nts Influenza Unknown 06/10/2018 Administered Influenza Unknown 05/27/2023 Administered Problems Problem Type SNOMED Code ICD Code Onset Dates Problem Status W/U Status Risk Notes Problem 498837466 Colon cancer screening (Z12.11) Active confirmed Problem 643872425 Encounter for other preprocedural examination (Z01.818) Active confirmed Problem 952547228 Family history o f colonic polyps (Z83.71) Active confirmed Vital Signs Temperature 97.1 degrees Fahrenheit 02/18/2024 Blood pressure diastolic 00 mm Hg 02/18/2024 Height 71.75 in 02/18/2024 Blood pressure systolic 000 mm Hg 02/18/2024 Weight 151 lb 8 oz lbs 02/18/2024 BMI 20.69 kg/m2 02/18/2024 Encounters Encounter Location Date Provider Diagnosis [facility] Outpatient [address] [place] [phone] 04/13/2024 Jv Lees Jr Colon cancer screening Z12.11 ; FH: colon polyps Z83.719 and Colon polyps K63.5 [facility] [address] [place] [phone] 02/18/2024 Jv Lees Jr Colon cancer screening Z12.11 ; Encounter for other preprocedural examination Z01.818 and Family history of colonic polyps Z83.71 [facility] [address] [place] [phone] 01/01/2024 Jv Lees Jr [facility] [address] [place] [phone] 04/12/2024 Jv Lees Jr [facility] [address] [place] [phone] 04/21/2024 Jv Lees Jr Assessments Encounter Date Diagnosis (ICD Code) Assessment Notes Treatment Notes Treatment Clinical Notes Section Notes 04/13/2024 Colon cancer screening (ICD-10 - Z12.11) 04/13/2024 FH: colon polyps (ICD-10 - Z83.719) 02/18/2024 Colon cancer screening (ICD-10 - Z12.11) Colonoscopy discharge material was printed 02/18/2024 Encounter for other preprocedural examination (ICD-10 - Z01.818) 04/13/2024 Colon polyps (ICD-10 - K63.5) 02/18/2024 Family history of colonic polyps (ICD-10 - Z83.71) Plan Of Treatment Future Test Test Name Order Date COLONOSCOPY 12/16/2013 COLONOSCOPY 01/13/2019 COLONOSCOPY 02/18/2024 Insurance Providers Payer Name Payer Address Payer Phone Subscriber Number Group Number Insured Name Patient Relationship to Insured Coverage Start Date Coverage End Date [facility] [address] [place] [address] [id number] REGINALD DAVIS Self - patient is the insured Medical (General) History Medical History History ICD Code Depression Colonoscopy 05/22, five-year followup fo r family history of polyps cataracts Prostate cancer Surgical History Surgery Date(Month/Year) knee surgery-right varocele Bilateral cataract repairs Prostatectomy 07/24
--- OUTSIDE RECORDS SUMMARY | 2024-11-15 10:21 | XMS_ITS ---
Author Organization [facility] Address [address] [place] [address] Care Team Providers Care Transcripter Name Role Phone Issa Munoz MD Primary Care Provider Jv Salinas Jr [phone] REASON FOR VISIT results of the procedure Encounters Encounter Location Date Provider Diagnosis [facility] [address] [place] [address] 04/21/2024 Jv Lees Jr Plan Of Treatment No Information Progress Notes * REGINA DAVIS NDOB:[birth year] (63 yo M)Acc No.[id number]:04/21/2024 Patient:?REGINA DAVIS :1960???Age:63 Y???Sex:Male Address:[address] [place] [address] * true * Date:? Generated for Printi ng/Fajosig/eTransmitting on:?11/15/2024 10:21 AM EDT
[2024-11-16 14:14] LABS: Rubella IgG Antibody 1.26 Index; Rubeola IgG (Measles) <13.50 AU/mL
== END 2024-11-15 09:20 | disposition home or self-care (01) ==
LOC: HO.WFDLDS 09:19
DX: Z00.00 Encounter for general adult medical examination without abnormal findings (principal)
CPT/HCPCS: 36415; 86735; 86762; 86765

== ENCOUNTER 2025-03-11 08:35 | Outpatient (AMB) | payer MEDICARE, SELFPAY ==
--- OUTSIDE RECORDS SUMMARY | 2024-04-13 06:00 | XMS_ITS ---
Author Organization [facility] Address [address] [place] [address] Care Team Providers Care Supervisor Type Photography Name Role Phone Issa Munoz MD Primary Care Provider Jv Salinas Jr [phone] REASON FOR VISIT screening colon Encounters Encounter Location Date Provider Diagnosis [facility] [place] [address] [place] [id number] 04/13/2024 Jv Lees Jr Colon cancer screening [...] REGINA DAVIS NDOB:[birth year] (64 yo M)Acc No.[id number]:04/13/2024 COLON WITH MAC Patient: REGINA REYNA Santi Provider: Sebastián Lees MD :1960 A ge:63 Y S ex:Male Date:04/13/2024 Address:[address] [id number] Pcp:Issa Munoz MD Subjective: * Chief Complaints: * 1 . Screening colon. * Medical History: Objective: * Vitals: Assessment: * Assessment: 1. C olon cancer screening - Z12.11 (Primary) 2 . F H: colon polyps - Z83.719 3 . C olon polyps - K63.5 Plan: * Treatment: * Procedure Codes: 4 5385 LESION REMOVAL COLONOSCOPY, 11451 COLONOSCOPY AND BIOPSY, Modifiers: 59 * * The named appointment provid er may or may not be the originator of this progress note, and it is not deemed complete until electronically signed by the appointment provider. Sign off status: Pending * Provider: Sebastián Lees MD Date: 0 04/13/2024 Generated for Cordell patterson/[place] on: 0 03/11/2025 08:48 AM EDT
--- NOTE | 2025-03-11 08:40 | A.OFFPC_ITS ---
Vital Signs 03/11/25 08:42 Height 5 ft 10 in Weight 144 lb 2 oz BMI 20.7 BP 112/58 L Blood Pressure Location Lt brachial Position Sitting Pulse 86 Pulse Source Pulse Oximeter Pulse Oximetry (%) 98 Oxygen Delivery Method Room Air Intake Visit Reasons: KERA Dr Munoz Syrup Mixer Helper Required: No Accompanied by: Self / Same As Patient Allergies No Known Allergies Allergy (Verified 03/11/25 09:11) Medication List - Last Reconciled 03/11/25 by Lisbet Serrano PA-C multivitamin 1 tab PO DAILY turmeric mg PO Tobacco use date assessed: 03/11/25 Fall risk assessment: No Falls in past year Last assessed Fall Risk: 03/11/25 Dental Screening Dental Screen Date: 03/11/25 Did you have a dental visit in the last 12 months?: Yes Did you have a dental problem in the last 6 months where you did not have access to dental care?: No Was dental information given to patient?: Patient has dentist HPI [facility]ER[facility] Dr Munoz HPI Details 64 year old female with past medical his tory of prostate cancer last seen by Dr. Munoz 03/2024 coming in for KERA/annual exam. Presenting with a wellness check and management of chronic conditions. Diagnosed and treated with surgery in [place], currently in remission for four years as per urologist Dr. Martinez. Grandfather, father, and brother had abdominal aortic aneurysms, all were smokers; patient is a non-smoker. He has had several in the past but does also mentioned having a pulsing sensation is abdomen and would like a repeat image at this time. Previous sleep study indicated borderline results; patient reports issues with mask fit during the test. PSA: ordered Eye exam: [facility] yearly Colonoscopy: 06/2024 repeat in 5 years Vaccines: [facility] Medical History Depression Prostate cancer Surgical History Hx of bilateral cataract extraction History of surgery Hx of right knee surgery H/O colonoscopy History of prostate surgery History of varicocele Family History Mother No problems noted. Father No problems noted. 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 1. Little interest or pleasure in doing things: not at all 2. Feeling down, depressed, or hopeless: not at all 3. Trouble falling or staying asleep, or sleeping too much: not at all 4. Feeling tired or having little energy: not at all 5. Poor appetite or overeating: not at all 6. Feeling bad about yourself - or that you are a failure or have let yourself or your family down: not at all 7. Trouble concentrating on things, such as reading the newspaper or watching television: not at all 8. Moving or speaking so slowly that other people could have noticed. Or the opposite - being so fidgety or restless that you have been moving around a lot more than usual: not at all 9. Thoughts that you would be better off or of hurting yourself in some way: not at all Total score: 0 Depression Screening Interpretation: Negative Depression Screening Done: Yes 17826 - PHQ-9 Billing: Yes Source: Developed by Drs. Adan Calvin, Chantel Zhu, Armond Meredith and colleagues, with an educational abigail from [employer]. Thrive Questionnaire Date Thrive assessed: 03/11/25 I am a: Patient What is your living situation today?: I have a steady place to live Within the past 12 months, did the food you bought not last and you didn't have the money to get more?: Never true Within the past 12 months, did you worry whether your food would run out before you got money to buy more?: Never true Do you have trouble paying for medicines?: No Do you have trouble getting transportation to medical appointments?: No Do you have trouble paying your heating and electricity bill?: No Do you have trouble taking care of your child, family member or friend?: No Do you have trouble with day-to-day activities such as bathing, preparing meals, shopping, managing finances, etc.?: No Are you currently unemployed and looking for a job?: No Are you interested in more education?: No Please select the resources that you would like help with: None Currently or been in a relationship where the following occur: No concerns reported THRIVE Score: 0 AUDIT C Alcohol Use Questionnaire (AUDIT-C) 1. How often do you have a drink containing alcohol?: Never Total Score: 0 CARYL-7 AMB Questionnaire CARYL-7 Date CARYL - 7 assessed: 03/11/25 Feeling nervous, anxious, or on edge: 0 = Not at all Not being able to stop or control worryin = Not at all Worrying too much about different things: 0 = Not at all Trouble relaxin = Not at all Being so restless that it is hard to sit still: 0 = Not at all Becoming easily annoyed or irritable: 0 = Not at all Feeling afraid as if something awful might happen: 0 = Not at all Total CARYL-7 score (0-4 normal; 5-9 mild; 10-14 moderate; 15-21 severe): 0 Source: Developed by Drs. Adan Calvin, Chantel Zhu, Armond Meredith and colleagues, with an educational abigail from [employer]. CARYL-7 Assessment Billing CARYL-7 Assessment Tool: CARYL-7 Assessment 26590 Review of Systems Const Denies body aches, Denies fatigue, Denies fever(s), Denies frequent falls, Denies headache(s) and Denies weakness Eyes Reports no additional complaints and Denies change in vision ENT Denies dysphagia, Denies dizziness, Denies facial pain, Denies headache(s), Denies nasal congestion and Denies odynophagia Card Denies chest pain, Denies syncope, Denies irregular heart rhythm, Denies leg edema, Denies lightheadedness and Denies dyspnea Resp Denies cough and Denies dyspnea GI Denies abdominal pain, Denies constipation, Denies dysphagia, Denies dyspepsia, Denies diarrhea, Denies nausea, Denies odynophagia and Denies vomiting Denies dysuria, Denies urinary frequency, Denies urinary hesitancy and Denies urinary urgency Musc Denies back pain and Denies myalgias Skin/Breast Reports system reviewed and no additional complaints, except as documented Neuro Denies dizziness, Denies syncope, Denies frequent falls, Denies headache(s) and Denies weakness Psych Reports no additional complaints Endo Denies fatigue Physical exam (Primary Care) Vital Signs: Last Vital Signs Pulse 86 03/11/25 08:42 BP 112/58 L 03/11/25 08:42 Pulse Ox 98 03/11/25 08:42 Oxygen Delivery Method Room Air 03/11/25 08:42 BMI result Body Mass Index 20.7 Tobacco/Smoking Status: Tobacco use Status Tobacco use date assessed 03/11/25 03/11/25 08:53 Patient Tobacco Use Status Never used Tobacco 03/11/25 08:53 e-Cigarette/Vaping Use Never Used 03/11/25 08:53 PHQ-9: PHQ-9 Score PHQ-9: Total score 0 03/11/25 09:12 Depression Screening Interpretation: Negative Thrive Assessment: Date of Thrive Assessment Date Thrive assessed 03/11/25 03/11/25 08:53 Currently or been in a relationship where the following occur: No concerns reported Const General: cooperative, healthy appearing, comfortable and no acute distress Orientation/consciousness: patient oriented x3 HENMT Head: Yes normocephalic Ears: hearing grossly normal bilaterally, external ears normal, TM's normal bilaterally and EAC's normal General nose exam: Normal external nose present Face and sinus: Yes normal facial exam and Yes sinuses nontender Mouth: Normal oral and palatal mucosa present and tongue normal Throat: Yes posterior oropharynx normal Eyes General: appearance normal, both eyes and all related structures Conjunctivae: conjunctivae normal Pupils: Equal, round and reactive pupils present EOM: EOMs intact bilaterally and No Nystagmus present Neck Neck: Yes normal visual inspection, Yes full ROM and Yes no lymphadenopathy Chest Chest palpation & inspection: normal inspection of the chest Resp Effort & Inspection: normal respiratory effort Auscultation: clear to auscultation bilaterally, no crackles, no rales, no rhonchi, no wheezes and breath sounds present Cardio Rate: regular rate Rhythm: regular rhythm Peripheral pulses: radial pulses present and dorsalis pedis present GI Inspection: Yes normal to inspection and No Abdominal wall edema Palpation (GI): Soft to palpation, not firm and nontender Auscultation: normal bowel sounds Rectal Exam - Male: Yes deferred General: Yes no CVA tenderness Back/Spine/Pelvis Back: no CVA tenderness Skin General skin exam: no rashes or lesions noted Neuro General: patient oriented x3 Cranial nerves: Yes Equal, round and reactive pupils present, Yes Midline tongue present, Yes Ability to bilaterally elevate shoulders present and No Nystagmus present Gait exam (Neuro): Normal gait present Extrem General: Yes normal to inspection, Yes full ROM, No no pedal edema and No edema Psych Speech and movement: Normal speech and movement present Affect: normal affect Insight: Good insight present (Psych) Judgement: Good judgement present (Psych) Coding Level of Care Code Est Pt Prev Care >65y(49361) Diagnoses Physical exam, annual Z00.00 Prostate cancer C61 Hypersomnolence G47.10 Family history of abdominal aortic aneurysm Z82.49 Additional Codes CARYL-7 Assessment Billing - CARYL-7 Assessment Tool: CARYL-7 Assessment 02800 ([id number]) PHQ-9 - 74739 - PHQ-9 Billing: Yes ([id number]) Assessment & Plan Assessment & Plan (1) Physical exam, annual: Code(s): Z00.00 - Encounter for general adult medical examination without abnormal findings Category: Medical Plan: Patient is up-to-date on all recommended routine screenings and vaccinations for his age. Healthy diet and regular exercise is encouraged. Ordered for updated blood work. Plan to follow up yearly or sooner as needed pending blood for re- evaluation (2) Prostate cancer: Comment: In remission 4 years - Urology Code(s): C61 - Malignant neoplasm of prostate Category: Medical Plan: Continue to follow up with [facility]. Ordered for repeat PSA. (3) Hypersomnolence: Code(s): G47.10 - Hypersomnia, unspecified Category: Medical Plan: Past sleep study was negative however patient states the mask was not fit right. Referral was placed to sleep Medicine today for further evaluation (4) Family history of abdominal aortic aneurysm: Code(s): Z82.49 - Family history of ischemic heart disease and other diseases of the circulatory system Category: Medical Plan: Patient was requesting additional ultrasound to rule out abdominal aortic aneurysm. He does have a strong family history with several first-degree relatives having abdominal aortic aneurysms does also mentioned having a new pulling sensation in the abdomen. Plan The patient will continue regular monitoring of prostate-specific antigen levels as part of his ongoing management for prostate cancer in remission. Given the family history of abdominal aortic aneurysms and the recent report of a pulsating sensation, an abdominal ultrasound will be ordered to rule out any potential issues. The patient will undergo a repeat sleep study to address the previous borderline results and issues with mask fit. Routine blood work will be conducted, including a fasting blood test, to monitor overall health and address the chronic low white blood cell count. The patient is advised to maintain his current exercise regimen and dietary habits to support his overall health. This note was constructed using voice recognition software. While every effort has been made to ensure accuracy and snow blower, still areas may have been included sometimes these areas may affect the content or meeting of the given symptoms. Total time spent caring for the patient today was 30 minutes. This includes time spent before the visit reviewing the chart, time spent during the visit, and time spent after the visit and documentation. Patient was informed and verbally consented to the use of an ambient scribe for clinic note documentation during this visit. Orders: Orders Free T4 (Free Thyroxine) Today G47.10 - Hypersomnia, unspecified, Z13.29 - Encounter for screening for other suspected endocrine disorder Lipid Panel Today Z13.220 - Encounter for screening for lipoid disorders Complete Blood Count Auto Diff Today D64.9 - Anemia, unspecified Comprehensive Met. Panel Today Z13.1 - Encounter for screening for diabetes mellitus PSA, Ultra Sensitive Today C61 - Malignant neoplasm of prostate, Z00.00 - Encounter for general adult medical examination without abnormal findings TSH reflex Free T4 Today G47.10 - Hypersomnia, unspecified, Z13.29 - Encounter for screening for other suspected endocrine disorder MMR IgG Measles Mumps Rubella Today Z00.00 - Encounter for general adult medical examination without abnormal findings US abdominal aortic aneurysm Today Z82.49 - Family history of ischemic heart disease and other diseases of the circulatory system Referrals Sleep Medicine Referral G47.10 - Hypersomnia, unspecified Sleep Medicine Referral G47.10 - Hypersomnia, unspecified
[2025-03-11 08:42] VITALS: BP 112/58; PULSE 86; O2SAT 98; BMI 20.7
== END 2025-03-11 09:39 | disposition home or self-care (01) ==
LOC: HO.HMCH 08:36
DX: C61 Malignant neoplasm of prostate (principal); G47.10 Hypersomnia, unspecified; Z82.49 Family history of ischemic heart disease and other diseases of the circulatory system

== ENCOUNTER → 2025-03-11 08:35 | Outpatient (BNVA) | payer MEDICARE, SELFPAY | DX: Z00.00 Encounter for general adult medical examination without abnormal findings (principal); C61 Malignant neoplasm of prostate; G47.10 Hypersomnia, unspecified; Z82.49 Family history of ischemic heart disease and other diseases of the circulatory system | CPT/HCPCS: 96127; 99212 ==

== ENCOUNTER 2025-03-15 05:59 | Outpatient (REF) | payer MEDICARE, SELFPAY ==
[2025-03-15 06:13] LABS: MANUAL DIFF FLAG NO
[2025-03-15 07:49] LABS: Hematocrit 38.6 % (42.0-52.0); Hemoglobin 13.2 g/dl (14.0-18.0); Imm Gran Abs Auto 0.02 X10*3/uL (0.00-0.03); Imm Gran Pct Auto 0.6 % (0.0-0.4); Lymphocytes Absolute Auto 1.1 X10*3/uL (1.2-4.9); Mean Corpuscular HGB Conc 34.2 g/dl (31.0-36.0); Mean Corpuscular Hemoglobin 31.7 pg (27.0-33.0); Mean Corpuscular Volume 92.8 fL (80.0-98.0); NRBC Abs Auto 0.000 X10*3/uL (0.0-0.012); NRBC Pct Auto 0.0 /100WBC (0.0-0.2); Platelet Count 172 X10*3/uL (160-400); Red Blood Count 4.16 X10*6/uL (4.60-5.80); White Blood Count 3.5 X10*3/uL (4.8-10.8)
[2025-03-15 08:33] LABS: Alanine Aminotransferase 19 U/L (0-40); Albumin Level 4.3 g/dL (3.5-5.0); Alkaline Phosphatase 60 U/L (39-117); Anion Gap 11 (12-20); Aspartate Amino Transferase 22 U/L (5-37); Blood Urea Nitrogen 14 mg/dL (9-16); Calcium 8.6 mg/dL (8.4-10.2); Carbon Dioxide 29 mmol/L (22-29); Chloride 108 mmol/L (96-108); Cholesterol 164 mg/dL (<200); Estimated Glomerular Filt Rate > 60; HDL Cholesterol 54 mg/dL (>40); Potassium 4.1 mmol/L (3.3-5.1); Sodium 144 mmol/L (135-145); Total Protein 6.4 g/dL (6.5-8.0); Triglycerides 66 mg/dL (<150)
[2025-03-15 08:51] LABS: Free T4 (Free Thyroxine) 1.09 ng/dL (0.71-1.85)
[2025-03-17 19:43] LABS: Rubeola IgG (Measles) >300.00 AU/mL
[2025-03-22 22:13] LABS: PSA, Ultra Sensitive <0.02 ng/mL
== END 2025-03-15 06:00 | disposition home or self-care (01) ==
LOC: HO.LAB 05:59
DX: Z00.00 Encounter for general adult medical examination without abnormal findings (principal); Z12.5 Encounter for screening for malignant neoplasm of prostate; Z13.1 Encounter for screening for diabetes mellitus; Z13.220 Encounter for screening for lipoid disorders; Z13.6 Encounter for screening for cardiovascular disorders; Z13.29 Encounter for screening for other suspected endocrine disorder; C61 Malignant neoplasm of prostate; D64.9 Anemia, unspecified; G47.10 Hypersomnia, unspecified
CPT/HCPCS: 36415; 80053; 80061; 84153; 84439; 84443; 85025; 86735; 86762; 86765

== ENCOUNTER 2025-03-28 12:51 | Outpatient (AMB) | payer MEDICARE, SELFPAY ==
[2025-03-28 13:26] VITALS: BP 108/60; PULSE 68; O2SAT 99; BMI 21.0
--- NOTE | 2025-03-28 13:26 | A.OFFVIS_ITS ---
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 HST in chart(AHI-<1, SIMEON- 91%) Witnessed snoring/apnea/gasping. Goes to bed around 9pm wakes up at 5am. No hard time falling sleep/staying asleep. Last test nose piece not sure if was accurate. first test was borderline. loking to see if maybe in lab PSG Allergies No Known Allergies Allergy (Verified 03/28/25 13:29) HPI Comments Details: 64 year old male is here for an evaluation of sleep difficulties, he is referred to us by his pcp. Marcia his helps with history. H/o Prostectomy in Jul 2021 and Mononucleosis spontaneous episodes. He goes to bed at 9pm and wakes up at 5am, will have one bathroom break.He denies multiple arousals. Pt. states his nudges him to wake up because he stops breathing at night will pause and gasp for air. He has had 2 sleep studies over the years, one showed mild roseanna, the one was inconclusive. He has trained himself to sleep on his side or on the belly. He denies snoring, not gasping for air. He has morning headaches, due to congestion and allergies. He denies bruxism. RLS symptoms he feels an uncomfortable sensation prior to bed, and can keep him up all night, and only when he naps during the daytime. He notices twitching and flying out of his upper extremity, notices increase in symptoms with dehydration. He denies numbness, tingling, cramping, denies radiation. Mood memory and diet is stable. mom 90 year old + stroke- +cancer metastasized to lung EBV? mono + FH+ melanoma, Sister 68 BRCA+ and Melanoma. PFSH Medical History Depression Prostate cancer Surgical History Hx of bilateral cataract extraction History of surgery Hx of right knee surgery H/O colonoscopy History of prostate surgery History of varicocele Family History Mother No problems noted. Father No problems noted. 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 Cognitive needs: No Hearing needs: No Vision needs: No Physical Exam Vital Signs: Last Vital Signs Pulse 68 03/28/25 13:26 BP 108/60 03/28/25 13:26 Pulse Ox 99 03/28/25 13:26 Oxygen Delivery Method Room Air 03/28/25 13:26 BMI result Body Mass Index 21.0 Const General: cooperative and comfortable Nutritional Appearance: average body habitus Orientation/consciousness: patient oriented x3 HEENT Face and sinus: Yes face symmetric Teeth and gingiva: other (mallampti score of 3) Eyes Pupils: Equal, round and reactive pupils present Neck Neck: Yes full ROM Resp Effort & Inspection: normal respiratory effort and able to speak in complete sentences Neuro General: patient oriented x3 and moves all extremities Cranial nerves: Yes Equal, round and reactive pupils present, Yes Normal accommodation reflex present, Yes Normal facial strength present, Yes Midline tongue present, Yes Ability to bilaterally rotate head present and Yes Ability to bilaterally elevate shoulders present Cognition (Neuro): normal cognition Gait exam (Neuro): Normal gait present Motor exam (neuro): 5/5 motor strength present throughout and Normal motor muscle tone present throughout Coordination: nxcukj-[id number] test normal Psych Appearance: grossly normal Mental Status: mental status grossly normal Thought process: Normal thought process present Thought content: Normal thought content present Assessment & Plan Assessment & Plan (1) Excessive daytime sleepiness: Code(s): G47.19 - Other hypersomnia Category: Medical Plan PSG to r/o ROSEANNA labs ferritin /homocysteine/ mma/ labs to r/o fatigue FH+ for cancer all siblings and he has multiple episodes of EBV/MONO. Orders: Orders RT PSG in-lab sleep study 03/28/25 G47.19 - Other hypersomnia Patient Instructions: Sleep Hygiene provided: set a scheduled bedtime and wake time to help regulate the circadian rhythm and balance the release of pituitary hormones. Sleep in a dark room, temperatures below 68 degrees, and no devices n bed. Limit caffeinated products 6 hours prior to bed, and limit fluids 2-4 hours prior to bed. Gentle night yoga, diffusing essential oils, and playing soft music can be relaxing. Coding Level of Care Code New Pt Level 4 (90001) Diagnoses Excessive daytime sleepiness G47.19 Sleep Questionnaire Difficulty falling asleep: No Difficulty staying asleep?: No Number of arousals: 1-2 Snoring: Yes Witnessed apneas: Yes Gasping arousals: No Nocturia: No GERD: No Vivid dreams: No Acting out dreams: No Abnormal behavior in sleep: No Abnormal movements in sleep: No Morning headaches: No Excessive daytime sleepiness: No Daytime naps: No Restless legs: Yes Hallucinations: No Sleep paralysis: No Drop attacks: No Sleep Study: Yes CPAP: No
--- OUTSIDE RECORDS SUMMARY | 2025-03-28 14:02 | XMS_ITS | Patient Health Record ---
Author Organization [facility] Address [address] [place] [address] Care Team Providers Care Sheetmetal Worker Name Role Phone Alexander MORRIS, Issa Primary Care Provider Jv Salinas Jr [phone] Allergies No Known Allergies Results Component Value Reference Range Notes Pathology Reviewed date:04/22/2024 07:59:50 AM Interpretation: Performing Lab:[facility], [address] [place] [id number] Notes/Report: Reason For Referral No Information Medications Medication [...] Problem Status W/U Status Risk Notes Problem [id number] Colon cancer screening (Z12.11) Active confirmed Problem 152487150 Encounter for other preprocedural examination (Z01.818) Active confirmed Problem 006163615 Family history o f colonic polyps (Z83.71) Active confirmed Encounters Encounter Location Date Provider Diagnosis [facility] [place] [address] [place] [phone] 04/13/2024 Jv Lees Jr Colon cancer screening Z12.11 ; FH: colon polyps Z83.719 and Colon polyps K63.5 [facility] [address] [place] [address] 04/12/2024 Jv Lees Jr [facility] [address] [place] [address] 04/21/2024 Jv Lees Jr Assessments Encounter Date Diagnosis (ICD Code) Assessment Notes Treatment Notes Treatment Clinical Notes Section Notes 04/13/2024 Colon cancer screening (ICD-10 - Z12.11) 04/13/2024 FH: colon polyps (ICD-10 - Z83.719) 04/13/2024 Colon polyps (ICD-10 - K63.5) Plan Of Treatment Future Test Test Name Order Date COLONOSCOPY 12/16/2013 COLONOSCOPY 01/13/2019 COLONOSCOPY 02/18/2024 Insurance Providers Payer Name Payer Address Payer Phone Subscriber Number Group Number Insured Name Patient Relationship to Insured Coverage Start Date Coverage End Date [facility] [employer] PROFESSIONAL CLAIMS [address] [place] [address] [phone] [id number] [facility] REGINA DAVIS Self - patient is the insured Medical (General) History Medical History History ICD Code Depression Colonoscopy 05/22, five-year followup fo r family history of polyps cataracts Prostate cancer Surgical History Surgery Date(Month/Year) knee surgery-right varocele Bilateral cataract repairs Prostatectomy 07/24
--- OUTSIDE RECORDS SUMMARY | 2025-03-28 14:02 | XMS_ITS | Encounter Summary ---
Author Organization [facility] Address [address] [place] [address] Phone Care Team Providers Care Bat Carrier Name Role Phone Issa Munoz MD Primary Care Provider Encounter Details Date Type Department Care Team (Late st Contact Info) Description 07/23/2021 Procedure Pass BWF Periop 1st floor [address] [place] [address] Social History Tobacco Use Types Packs/Day Years Used Date Smoking Tobacco: Never Smokeless Tobacco: Never Alcohol Use Standard Drinks/Week Comments Not Currently 0 (1 standard drink = 0.6 oz pur e alcohol) Sex and Gender Information Value Date Recorded Sex Assigned at Not on file Legal Sex Male 11:32 AM EDT Gender Identity Not on file Sexual Orientation Straight 07/20/2021 11 :14 AM EST documented as of this encounter Functional Status * Calculated C-SSRS Risk Score (Lifetime/Recent) Answer Date of Assessment Author No Risk Indicated 07/23/2021 11:00 PM Nimisha Hill RN * [place] Suicide Severity Rating Scale (Screener/Recent Self-Report) Question Answer Date of Assessment Author 1. Wish to be (Past 1 Month) No 021 11:00 PM Nimisha Hill RN 2. Non-Specific Active Suici hector Thoughts (Past 1 Month) No 07/23/2021 11:00 PM Nova Hill RN 6. Suicidal Behavior (Lifetime) No 11:00 PM Nimisha Hill RN documented as of this encounter Plan of Treatment Not on file documented as of this encounter Visit Diagnoses Not on filedocumented in this encounter Care Teams Bat Carrier Relationship Specialty Start Date End Date Issa Munoz MD [address] [place] [address] [place] [address] PCP - General Internal Medicine 05/23/21 documented as of this encounter Additional Source Comments The information contained in this document represents components of the legal health record. It is not the complete legal health record.[facility]
== END 2025-03-28 14:40 | disposition home or self-care (01) ==
LOC: HO.HSMS 12:52
PROVIDERS: Visit Provider Physician Assistant Medical
DX: G47.19 Other hypersomnia (principal)
CPT/HCPCS: 99204

== ENCOUNTER → 2025-03-28 12:51 | Outpatient (BNVA) | payer MEDICARE, SELFPAY | PROVIDERS: Visit Provider Physician Assistant Medical | DX: G47.19 Other hypersomnia (principal) | CPT/HCPCS: 99202 ==

== ENCOUNTER 2025-04-08 06:08 | Outpatient (REF) | payer MEDICARE, SELFPAY ==
--- OUTSIDE RECORDS SUMMARY | 2024-04-13 06:00 | XMS_ITS ---
Author Organization [facility] Address [address] [place] [address] Care Team Providers Care Underground Utility Locator Name Role Phone Issa Munoz MD Primary Care Provider Jv Salinas Jr [phone] REASON FOR VISIT screening colon Encounters Encounter Location Date Provider Diagnosis [facility] [place] [place] [address] [place] [address] [phone] 04/13/2024 Jv Lees Jr Colon cancer screening [...] REGINA DAVIS NDOB:[birth year] (64 yo M)Acc No.[id number]:04/13/2024 COLON WITH MAC Patient: REGINA REYNA Santi Provider: Sebastián Lees MD :1960 A ge:63 Y S ex:Male Date:04/13/2024 Address:[address] [id number] Pcp:Issa Munoz MD Subjective: * Chief Complaints: * 1 . Screening colon. * Medical History: Objective: * Vitals: Assessment: * Assessment: 1. C olon cancer screening - Z12.11 (Primary) 2 . F H: colon polyps - Z83.719 3 . C olon polyps - K63.5 Plan: * Treatment: * Procedure Codes: 4 5385 LESION REMOVAL COLONOSCOPY, 53859 COLONOSCOPY AND BIOPSY, Modifiers: 59 * * The named appointment provid er may or may not be the originator of this progress note, and it is not deemed complete until electronically signed by the appointment provider. Sign off status: Pending * Provider: Sebastián Lees MD Date: 04/13/2024 Generated for Cordell patterson/[place] on: 04/08/2025 06:10 AM EDT
--- OUTSIDE RECORDS SUMMARY | 2025-04-08 06:10 | XMS_ITS | Patient Health Record ---
Author Organization [facility] Address [address] [place] [address] Care Team Providers Care [employer] Combat Skills Name Role Phone Alexander MORRIS, Issa Primary Care Provider Jv Salinas Jr Allergies No Known Allergies Results Component Value Reference Range Notes Pathology Reviewed date:04/22/2024 07:59:50 AM Interpretation: Performing Lab:[facility], [address] [place] [id number] Notes/Report: Reason For Referral No Information Medications [...] Problem Status W/U Status Risk Notes Problem [id number] Colon cancer screening (Z12.11) Active confirmed Problem 326409803 Encounter for other preprocedural examination (Z01.818) Active confirmed Problem 236741215 Family history o f colonic polyps (Z83.71) Active confirmed Encounters Encounter Location Date Provider Diagnosis [facility] [place] [address] [place] [phone] 04/13/2024 Jv Lees Jr Colon cancer screening Z12.11 ; FH: colon polyps Z83.719 and Colon polyps K63.5 [facility] [address] [place] [address] 04/12/2024 Jv Lees Jr [facility] [address] [place] [address] 04/21/2024 Jv Lees Jr Assessments Encounter Date [...] Insured Coverage Start Date Coverage End Date [facility] [employer] PROFESSIONAL CLAIMS [address] [place] [address] [phone] [id number] [facility] REGINA DAVIS Self - patient is the insured Medical (General) History Medical History History ICD Code Depression Colonoscopy 05/22, five-year followup fo r family history of polyps cataracts Prostate cancer Surgical History Surgery Date(Month/Year) knee surgery-right varocele Bilateral cataract repairs Prostatectomy 07/24
--- OUTSIDE RECORDS SUMMARY | 2025-04-08 06:10 | XMS_ITS | Encounter Summary ---
Author Organization [facility] Address [address] [place] [address] Phone Care Team Providers Care Handle Finisher Name Role Phone Issa Munoz MD Primary Care Provider [phone] Encounter Details Date Type Department Care Team (Late st Contact Info) Description 07/23/2021 Procedure Pass BWF Periop 1st floor [address] [place] [address] Social History Tobacco Use Types Packs/Day Years [...] 07/23/2021 11:00 PM Nimisha Hill RN * [place] Suicide Severity Rating Scale (Screener/Recent Self-Report) Question [...] on filedocumented in this encounter Care Teams Handle Finisher Relationship Specialty Start Date End Date Issa Munoz MD [address] [place] [address] [place] [address] PCP - General Internal Medicine 05/23/21 documented as of this encounter Additional Source Comments The information contained in this document represents components of the legal health record. It is not the complete legal health record.[facility]
--- OUTSIDE RECORDS SUMMARY | 2025-04-08 06:11 | XMS_ITS | Clinical Summary ---
Author Organization [facility] Address [address] [place] [address] Phone Care Team Providers Care Gear Room Keeper Name Role Phone Issa Munoz MD Primary Care Provider Allergies No known active allergies Medications therapeutic multivitamin tablet Take 1 tablet by mouth daily. Active polyethylene glycol (MIRALAX) 17 gram packet Take 17 g by mouth daily as needed. 30 packet 1 Active Additional Information Patient not taking.Reported on 08/01/2021 senna (SENOKOT) 8.6 mg tablet Take 1 tablet by mouth 2 (two) times a day. 60 tablet 1 Active Additional Information Patient not taking.Reported on 08/01/2021 trospium (SANCTURA) 20 mg tablet Take 1 tablet (20 mg total) by mouth 2 (two) times a day. 20 tablet 1 Active Additional Information Patient not taking.Reported on 08/01/2021 Active Problems Problem Noted Date Diagnosed Date Prostate CA 07/23/2021 Anemia Overview (07/16/2021): h/o borderline anemia Immunizations Immunization Administration Dates Next Due COVID-19 (Pre-05/26) Moderna Vaccine, mRNA, PF 06/21/2021,12/07/2020,11/09/2020 Family History Medical History Relation Comments Heart disease Father No Known Problems Mother Relation Status Comments Father Alive Mother Alive Social History Tobacco Use Types Packs/Day Years Used Date Smoking Tobacco: Never Smokeless Tobacco: Never Alcohol Use Standard Drinks/Week Comments Not Currently 0 (1 standard drink = 0.6 oz pur e alcohol) Education Answer Date Recorded Are you interested in more education? Not on matty e 11/30/2022 Are you concerned about learning? Not on file 11/30/2022 No 11/30/2022 No 11/30/2022 Digital Access Answer Date Recorded No 12/29/2022 No 12/29/2022 No 12/29/2022 Reliable internet access at home? Not on file 12/29/2022 Device with a working camera? Not on file Sex and Gender Information Value Date Recorded Sex Assigned at Not on file Legal Sex Male 11:32 AM EDT Gender Identity Not on file Sexual Orientation Straight 07/20/2021 11 :14 AM EST Last Filed Vital Signs Vital Sign Reading Time Taken Comments Blood Pressure 109/62 08/01/2021 11:28 AM EST Pulse 89 08/01/2021 11:28 AM EST Temperature 37.3 C (99.1 F) 07/24/2021 12:42 PM EST Respiratory Rate 18 07/24/2021 12:42 PM EST Oxygen Saturation 99% 07/24/2021 12:42 PM EST Inhaled Oxygen Concentration - - Weight 68 kg (150 lb) 08/01/2021 11:28 AM EST Height 177.8 cm (5' 10 ) 08/01/2021 11:28 AM EST Body Mass Index 21.52 08/01/2021 11:28 AM EST Plan of Treatment Health Maintenance Due Date Last Done Comments LIPID PANEL 1959 DEPRESSION SCREENING 1971 HEPATITIS C SCREENING 1977 HIV ONE-TIME SCREENING (18-65 YEARS) 1977 PNEUMOCOCCAL VACCINES (50+ years) (1 of 2 - PCV) 1978 COLOGUARD 2004 COLONOSCOPY 2004 COLORECTAL CANCER SCREENING 2004 FIT TEST 2004 FOBT 2004 SIGMOIDOSCOPY 2004 VIRTUAL COLONOSCOPY 2004 ZOSTER VACCINES (2 of 2) 07/17/2020 05/22/2020 INFLUENZA VACCINE (#1) 2025 1, 05/10/2020, 05/21/2019, Additional history exists COVID-19 VACCINE (4 - 2024- season) 2025 06/21/2021, 12/07/2020, 11/09/2020 Adult Td,Tdap Booster 02/20/2027 02/20/2017, 017 RSV VACCINE (1 - 1-dose 75+ series) 2034 SMOKING STATUS SCREENING (Once After 26 Yrs) Completed 08/01/2021 HEPATITIS A VACCINES Aged Out No long er eligible based on patient's age to complete this topic HIB VACCINES Aged Out No longer eligi ble based on patient's age to complete this topic MENINGOCOCCAL VACCINES (ACWY) Aged Out No longer eligible based on patient's age to complete this topic MENINGOCOCCAL VACCINES (B) Aged Out N o longer eligible based on patient's age to complete this topic Medical Devices Not on file Insurance [facility] HMO POS [facility] HMO POS [facility] HMO POS [facility] HMO POS Advance Directives For more information, please contact: [phone] (9AM - 5PM Jessica/[facility], Friday-Friday) Documents on File Type Date Recorded Patient Globe Tester Expl anation Healthcare Proxy 07/23/2021 * Full Code (Latest Code Status on File) Date Activated Date Inactivated Comments 07/23/2021 9:36 PM Question Answer Comments Code Status Confirmed With: Other (specify below ) Care Teams Gear Room Keeper Relationship Specialty Start Date End Date Issa Munoz MD [address] [place] [address] [place] [address] PCP - General Internal Medicine 05/23/21 Additional Source Comments The information contained in this document represents components of the legal health record. It is not the complete legal health record.[facility]
[2025-04-08 08:15] LABS: Iron 119 mcg/dL (45-160); Magnesium 2.0 mg/dL (1.6-2.6); Percent Iron Saturation 50 % (15-50); Total Iron Binding Capacity 240 mcg/dL (228-428); Unsaturated Iron Binding 121 ug/dL
[2025-04-08 08:30] LABS: Ferritin 106 ng/mL (20-250)
== END 2025-04-08 06:09 | disposition home or self-care (01) ==
LOC: HO.LAB 06:08
PROVIDERS: Visit Provider Physician Assistant Medical
DX: R53.83 Other fatigue (principal); G47.10 Hypersomnia, unspecified; D64.9 Anemia, unspecified; Z20.828 Contact with and (suspected) exposure to other viral communicable diseases; G47.9 Sleep disorder, unspecified; Z13.6 Encounter for screening for cardiovascular disorders
CPT/HCPCS: 36415; 82728; 83090; 83540; 83735; 83921; 84207; 84425; 84443

== ENCOUNTER → 2025-04-26 20:30 | Outpatient (REF) | payer MEDICARE, SELFPAY ==
--- OUTSIDE RECORDS SUMMARY | 2024-04-13 06:00 | XMS_ITS ---
Author Organization [facility] Address [address] [place] [address] Care Team Providers Care Co Founder And Cto Name Role Phone Issa Munoz MD Primary Care Provider Jv Salinas Jr REASON FOR VISIT screening colon Encounters Encounter Location Date Provider Diagnosis [facility] Out[place] [address] [place] [phone] 04/13/2024 Jv Lees Jr Colon cancer screening [...] REGINA DAVIS NDOB:[birth year] (64 yo M)Acc No.[id number]:04/13/2024 COLON WITH MAC Patient: REGINA REYNA Santi Provider: Sebastián Lees MD :1960 A ge:63 Y S ex:Male Date:04/13/2024 Address:[address] [id number] Pcp:Issa Munoz MD Subjective: * Chief Complaints: * 1 . Screening colon. * Medical History: Objective: * Vitals: Assessment: * Assessment: 1. C olon cancer screening - Z12.11 (Primary) 2 . F H: colon polyps - Z83.719 3 . C olon polyps - K63.5 Plan: * Treatment: * Procedure Codes: 4 5385 LESION REMOVAL COLONOSCOPY, 46662 COLONOSCOPY AND BIOPSY, Modifiers: 59 * * The named appointment provid er may or may not be the originator of this progress note, and it is not deemed complete until electronically signed by the appointment provider. Sign off status: Pending * Provider: Sebastián Lees MD Date: 04/13/2024 Generated for Cordell patterson/[place] on: 04/26/2025 09:59 PM EDT
--- OUTSIDE RECORDS SUMMARY | 2025-04-26 21:59 | XMS_ITS | Encounter Summary ---
Author Organization [facility] Address [address] [place] [address] Phone Care Team Providers Care Health Care Legal Assistant Name Role Phone Issa Munoz MD Primary Care Provider [phone] Encounter Details Date Type Department Care Team (Late st Contact Info) Description 07/23/2021 Procedure Pass BWF Periop 1st floor [address] [place] [address] Social History Tobacco Use Types Packs/Day Years [...] 07/23/2021 11:00 PM Nimisha Hill RN * [place] Suicide Severity Rating Scale (Screener/Recent Self-Report) Question [...] on filedocumented in this encounter Care Teams Health Care Legal Assistant Relationship Specialty Start Date End Date Issa Munoz MD [address] [place] [address] [place] [address] PCP - General Internal Medicine 05/23/21 documented as of this encounter Additional Source Comments The information contained in this document represents components of the legal health record. It is not the complete legal health record.[facility]
--- OUTSIDE RECORDS SUMMARY | 2025-04-26 21:59 | XMS_ITS | Clinical Summary ---
Author Organization [facility] Address [address] [place] [address] Phone Care Team Providers Care Human Resources Safety Manager Name Role Phone Issa Munoz MD Primary Care Provider [phone] Allergies No known active allergies Medications therapeutic [...] Devices Not on file [facility] POS [facility] HMO POS [facility] HMO POS [facility] HMO POS [facility] HMO POS [facility] HMO POS Advance Directives For more information, please contact: [phone] (9AM - 5PM Jessica/[facility], Friday-Friday) Documents on File Type Date Recorded Patient Armhole Sewer Expl anation Healthcare Proxy 07/23/2021 * Full Code (Latest Code Status on File) Date Activated Date Inactivated Comments 07/23/2021 9:36 PM Question Answer Comments Code Status Confirmed With: Other (specify below ) Care Teams Human Resources Safety Manager Relationship Specialty Start Date End Date Issa Munoz MD [address] [place] [address] [place] [address] PCP - General Internal Medicine 05/23/21 Additional Source Comments The information contained in this document represents components of the legal health record. It is not the complete legal health record.[facility]
--- OUTSIDE RECORDS SUMMARY | 2025-04-26 21:59 | XMS_ITS | Patient Health Record ---
Author Organization [facility] Address [address] [place] [address] Care Team Providers Care Group Home Supervisor Name Role Phone Alexander MORRIS, Issa Primary Care Provider Jv Salinas Jr Unavailable Allergies No Known Allergies Reason For Referral No Information Medications Medication [...] Problem Status W/U Status Risk Notes Problem [id number] Colon cancer screening (Z12.11) Active confirmed Problem 610419701 Encounter for other preprocedural examination (Z01.818) Active confirmed Problem 711949642 Family history o f colonic polyps (Z83.71) Active confirmed Plan Of Treatment Future Test Test Name Order Date COLONOSCOPY 12/16/2013 COLONOSCOPY 01/13/2019 COLONOSCOPY 02/18/2024 Insurance Providers Payer Name Payer Address Payer Phone Subscriber Number Group Number Insured Name Patient Relationship to Insured Coverage Start Date Coverage End Date [employer] PROFESSIONAL CLAIMS [address] [place] [address] [phone] [id number] REGINA DAVIS Self - patient is the insured Medical (General) History Medical History History ICD Code Depression Colonoscopy 05/22, five-year followup fo r family history of polyps cataracts Prostate cancer Surgical History Surgery Date(Month/Year) knee surgery-right varocele Bilateral cataract repairs Prostatectomy 07/24
== END ==
LOC: HO.SL 20:30
PROVIDERS: Visit Provider Physician Assistant Medical
DX: G47.19 Other hypersomnia (principal)
CPT/HCPCS: 95810

== ENCOUNTER → 2025-04-26 21:08 | Outpatient (BNV) | payer MEDICARE, SELFPAY | PROVIDERS: Visit Provider Psychiatry & Neurology Neurology | DX: R40.0 Somnolence (principal) | CPT/HCPCS: 95810 ==

== ENCOUNTER 2025-05-03 15:18 | Outpatient (AMB) | payer MEDICARE, SELFPAY ==
--- OUTSIDE RECORDS SUMMARY | 2024-04-13 06:00 | XMS_ITS ---
Author Organization [facility] Address [address] [place] [address] Care Team Providers Care Metal Weigher Name Role Phone Issa Munoz MD Primary Care Provider Jv Salinas Jr [phone] REASON FOR VISIT screening colon Encounters Encounter Location Date Provider Diagnosis [facility] [place] [address] [place] [id number] 04/13/2024 Jv Lees Jr Colon cancer screening [...] REGINA DAVIS NDOB:[birth year] (64 yo M)Acc No.[id number]:04/13/2024 COLON WITH MAC Patient: REGINA REYNA Santi Provider: Sebastián Lees MD :1960 A ge:63 Y S ex:Male Date:04/13/2024 Address:[address] [id number] Pcp:Issa Munoz MD Subjective: * Chief Complaints: * 1 . Screening colon. * Medical History: Objective: * Vitals: Assessment: * Assessment: 1. C olon cancer screening - Z12.11 (Primary) 2 . F H: colon polyps - Z83.719 3 . C olon polyps - K63.5 Plan: * Treatment: * Procedure Codes: 4 5385 LESION REMOVAL COLONOSCOPY, 29955 COLONOSCOPY AND BIOPSY, Modifiers: 59 * * The named appointment provid er may or may not be the originator of this progress note, and it is not deemed complete until electronically signed by the appointment provider. Sign off status: Pending * Provider: Sebastián Lees MD Date: 04/13/2024 Generated for Cordell patterson/[place] on: 05/03/2025 04:36 PM EDT
[2025-05-03 15:19] VITALS: BP 100/50; PULSE 69; TEMP 36.7; O2SAT 98; BMI 21.2
--- NOTE | 2025-05-03 15:19 | MHC.OFFWIV ---
Intake Vital Signs 05/03/25 15:19 Height 5 ft 10 in Weight 148 lb BMI 21.2 BP 100/50 L Blood Pressure Location Rt brachial Position Sitting Pulse 69 Pulse Source Pulse Oximeter Temp 98.1 F Temp Source Oral Pulse Oximetry (%) 98 Oxygen Delivery Method Room Air Intake Visit Reasons: EP cut on right leg Intake Note: pt presents with open wound right lower leg today while cutting wood Patient Tobacco Use Status: Never used Tobacco Allergies No Known Allergies Allergy (Verified 05/03/25 15:24) Do you need a note to return to daycare/school/sports/work: No HPI HPI Comments History of Present Illness Details History of Present Illness - The patient is a 64-year-old male presenting with a laceration on the right lower leg. - The injury was caused by a piece of wood striking the ferguson while splitting wood, resulting in significant bleeding that ceased with pressure application. - He states that he was wearing jeans and didn't think anything of it until he saw some blood. - The patient experiences mild throbbing pain and swelling, with no numbness or tingling, and has an up-to-date tetanus prophylaxis. - He denies calf pain, ankle pain, numbness, tingling, or foot pain. Physical Exam General: Cooperative, healthy appearing, comfortable, no acute distress and well developed Orientation: Patient oriented x3 Cardiovascular: Regular rate and rhythm. Normal S1 and S2. Pulses are 1+ on the LE. Skin: No rashes or lesions noted. Small puncture wound noted to the right lower anterior leg. Bleeding is minimal and controlled. No swelling noted. Neuro: Sensation intact. Extremities: Normal to inspection except for a small puncture wound on the RLE. No TTP of the RLE. Strength is 5/5 on the LE. Strength is 5/5 on the LE. Ambulates with steady gait. Patient was informed and verbally consented to the use of an ambient scribe for clinic note documentation during this visit. [facility] Medical History Depression Prostate cancer Surgical History Hx of bilateral cataract extraction History of surgery Hx of right knee surgery H/O colonoscopy History of prostate surgery History of varicocele Family History Mother No problems noted. Father No problems noted. 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 Cognitive needs: No Hearing needs: No Vision needs: No Review of Systems Const All systems reviewed & are unremarkable except as noted in HPI and below Physical Exam Vital Signs: Last Vital Signs Temp 98.1 F 05/03/25 15:19 Pulse 69 05/03/25 15:19 BP 100/50 L 05/03/25 15:19 Pulse Ox 98 05/03/25 15:19 Oxygen Delivery Method Room Air 05/03/25 15:19 BMI result Body Mass Index 21.2 Office Procedures AMB Laceration Repair Laceration repair performed by: Ana Lilia Henley Location: right lower anterior leg Length: 1cm Irrigation: saline Preparation: betadine Wound exploration: none Deep closure: No Skin closure: glue Technique: Glue applied to the puncture wound. Topical treatment: dry Tetanus toxoid ordered: No Patient tolerated procedure: [place]: [place] [id number]-Dfuzyrtexx Repair <2.5cm Procedure code (CPT) selection complete Assessment & Plan Assessment & Plan (1) Puncture wound of leg not thigh, right: Code(s): S81.831A - Puncture wound without foreign body, right lower leg, initial encounter Qualifiers: Encounter type: initial encounter Qualified Code(s): S81.831A - Puncture wound without foreign body, right lower leg, initial encounter Plan: glu Plan Most likely a puncture wound to the leg, unsuturable tetanus is UTD plan - will glue to area - dry sterile dressing - tylenol or motrin as needed - keep area clean and dry and allow the glue to fall off on its own - advised to watch for signs of infection such as redness, warmth, discharge, etc - follow up with PCP Orders: Orders AMB Laceration Repair Today T14.8XXA - Other injury of unspecified body region, initial encounter Coding Level of Care Code Est Pt Level 4 (03890) Diagnoses Puncture wound of right lower extremity excluding thigh, initial encounter S81.831A Encounter type: initial encounter CPT Codes Office Procedure - Laceration Repair 1: 36246-Ymmtnwdyce Repair <2.5cm ([id number])
--- OUTSIDE RECORDS SUMMARY | 2025-05-03 16:36 | XMS_ITS | Patient Health Record ---
Author Organization [facility] Address [address] [place] [address] Care Team Providers Care Allergist/Md Name Role Phone Alexander MORRIS, Issa Primary [...] Problem Status W/U Status Risk Notes Problem [id number] Colon cancer screening (Z12.11) Active confirmed Problem 389852431 Encounter for other preprocedural examination (Z01.818) Active confirmed Problem 092170722 Family history o f colonic polyps (Z83.71) Active confirmed Plan Of Treatment Future Test Test Name Order Date COLONOSCOPY 12/16/2013 COLONOSCOPY 01/13/2019 COLONOSCOPY 02/18/2024 Insurance Providers Payer Name Payer Address Payer Phone Subscriber Number Group Number Insured Name Patient Relationship to Insured Coverage Start Date Coverage End Date O [employer] PROFESSIONAL CLAIMS [address] [place] [address] [phone] [id number] 400 REGINA DAVIS Self - patient is the insured Medical (General) History Medical History History ICD Code Depression Colonoscopy 05/22, five-year followup fo r family history of polyps cataracts Prostate cancer Surgical History Surgery Date(Month/Year) knee surgery-right varocele Bilateral cataract repairs Prostatectomy 07/24
--- OUTSIDE RECORDS SUMMARY | 2025-05-03 16:37 | XMS_ITS | Clinical Summary ---
Author Organization [facility] Address [address] [place] [address] Phone Care Team Providers Care Director Of Diversity And Inclusion Name Role Phone Issa Munoz MD Primary Care Provider [phone] Allergies No known active allergies Medications therapeutic [...] Devices Not on file [facility] O [facility] H[facility] POS [facility] HMO POS [facility] H[facility] POS [facility] HMO POS [facility] H[facility] POS [facility] HMO POS Advance Directives For more information, please contact: [phone] (9AM - 5PM Jessica/[facility], Friday-Friday) Documents on File Type Date Recorded Patient Medical Reception Specialist Expl anation Healthcare Proxy 07/23/2021 * Full Code (Latest Code Status on File) Date Activated Date Inactivated Comments 07/23/2021 9:36 PM Question Answer Comments Code Status Confirmed With: Other (specify below ) Care Teams Director Of Diversity And Inclusion Relationship Specialty Start Date End Date Issa Munoz MD [address] [place] [address] [place] [address] PCP - General Internal Medicine 05/23/21 Additional Source Comments The information contained in this document represents components of the legal health record. It is not the complete legal health record.[facility]
--- OUTSIDE RECORDS SUMMARY | 2025-05-03 16:37 | XMS_ITS | Encounter Summary ---
Author Organization [facility] Address [address] [place] [address] Phone Care Team Providers Care Data Services Developer Name Role Phone Issa Munoz MD Primary Care Provider [phone] Encounter Details Date Type Department Care Team (Late st Contact Info) Description 07/23/2021 Procedure Pass BWF Periop 1st floor [address] [place] [address] Social History Tobacco Use Types Packs/Day Years [...] 07/23/2021 11:00 PM Nimisha Hill RN * [place] Suicide Severity Rating Scale (Screener/Recent Self-Report) Question [...] on filedocumented in this encounter Care Teams Data Services Developer Relationship Specialty Start Date End Date Issa Muonz MD [address] [place] [address] [place] [address] PCP - General Internal Medicine 05/23/21 documented as of this encounter Additional Source Comments The information contained in this document represents components of the legal health record. It is not the complete legal health record.[facility]
== END 2025-05-03 16:39 | disposition home or self-care (01) ==
PROVIDERS: Visit Provider Physician Assistant Medical
DX: S81.831A Puncture wound without foreign body, right lower leg, initial encounter (principal)

== ENCOUNTER → 2025-05-03 15:18 | Outpatient (BNVA) | payer MEDICARE, SELFPAY | PROVIDERS: Visit Provider Physician Assistant Medical | DX: S81.831A Puncture wound without foreign body, right lower leg, initial encounter (principal); W22.8XXA Striking against or struck by other objects, initial encounter; Y93.89 Activity, other specified; Y92.9 Unspecified place or not applicable; Y99.9 Unspecified external cause status | CPT/HCPCS: 12001; 99212 ==

== ENCOUNTER 2025-05-06 08:18 | Outpatient (REF) | payer MEDICARE, SELFPAY ==
--- OUTSIDE RECORDS SUMMARY | 2024-04-13 06:00 | XMS_ITS ---
Author Organization [facility] Address [address] [place] [address] Care Team Providers Care Medical Office Asst Name Role Phone Issa Munoz MD Primary Care Provider Jv Salinas Jr REASON FOR VISIT screening colon Encounters Encounter Location Date Provider Diagnosis [facility] [place] [address] [place] [id number] 04/13/2024 Jv Lees Jr Colon cancer screening [...] REGINA DAVIS NDOB:[birth year] (64 yo M)Acc No.[id number]:04/13/2024 COLON WITH MAC Patient: REGINA REYNA Santi Provider: Sebastián Lees MD :1960 A ge:63 Y S ex:Male Date:04/13/2024 Address:[address] [id number] Pcp:Issa Munoz MD Subjective: * Chief Complaints: * 1 . Screening colon. * Medical History: Objective: * Vitals: Assessment: * Assessment: 1. C olon cancer screening - Z12.11 (Primary) 2 . F H: colon polyps - Z83.719 3 . C olon polyps - K63.5 Plan: * Treatment: * Procedure Codes: 4 5385 LESION REMOVAL COLONOSCOPY, 19488 COLONOSCOPY AND BIOPSY, Modifiers: 59 * * The named appointment provid er may or may not be the originator of this progress note, and it is not deemed complete until electronically signed by the appointment provider. Sign off status: Pending * Provider: Sebastián Lees MD Date: 0 04/13/2024 Generated for Cordell patterson/[place] on: 08:37 AM EDT
--- NOTE | ~2025-05-06 | US_ITS ---
CLINICAL HISTORY: Z82.49 - Family history of ischemic heart disease and other diseases of ... US Abdomen (AAA) Comparison: None provided Findings: Aorta proximal 2.8 cm. Aorta mid 1.8 cm. Aorta distal 1.8 cm. Right common iliac artery 0.8 cm. Left common iliac artery 1.1 cm. IMPRESSION: 1. No abdominal aortic aneurysm. This document has been electronically signed by: James Chapa MD on 05/07/2025 08:45:29
--- OUTSIDE RECORDS SUMMARY | 2025-05-06 08:37 | XMS_ITS | Patient Health Record ---
Author Organization [facility] Address [address] [place] [address] Care Team Providers Care Pruner Name Role Phone Alexander MORRIS, Issa Primary [...] Problem Status W/U Status Risk Notes Problem [id number] Colon cancer screening (Z12.11) Active confirmed Problem 974344388 Encounter for other preprocedural examination (Z01.818) Active confirmed Problem 224625341 Family history o f colonic polyps (Z83.71) Active confirmed Plan Of Treatment Future Test Test Name Order Date COLONOSCOPY 12/16/2013 COLONOSCOPY 01/13/2019 COLONOSCOPY 02/18/2024 Insurance Providers Payer Name Payer Address Payer Phone Subscriber Number Group Number Insured Name Patient Relationship to Insured Coverage Start Date Coverage End Date O [employer]UE [employer] PROFESSIONAL CLAIMS [address] [place] [address] [phone] [id number] 400 REGINA DAVIS Self - patient is the insured Medical (General) History Medical History History ICD Code Depression Colonoscopy 05/22, five-year followup fo r family history of polyps cataracts Prostate cancer Surgical History Surgery Date(Month/Year) knee surgery-right varocele Bilateral cataract repairs Prostatectomy 07/24
--- OUTSIDE RECORDS SUMMARY | 2025-05-06 08:38 | XMS_ITS | Clinical Summary ---
Author Organization [facility] Address [address] [place] [address] Phone Care Team Providers Care Supervisor Alteration Workroom Name Role Phone Issa Munoz MD Primary Care Provider [phone] Allergies No known active allergies Medications therapeutic [...] Devices Not on file [facility] H[facility] POS [facility] H[facility] POS Advance Directives For more information, please contact: [phone] (9AM - 5PM Jessica/[facility], Friday-Friday) Documents on File Type Date Recorded Patient Apartment Maintenance Worker Expl anation Healthcare Proxy 07/23/2021 * Full Code (Latest Code Status on File) Date Activated Date Inactivated Comments 07/23/2021 9:36 PM Question Answer Comments Code Status Confirmed With: Other (specify below ) Care Teams Supervisor Alteration Workroom Relationship Specialty Start Date End Date Issa Munoz MD [address] [place] [address] [place] [address] PCP - General Internal Medicine 05/23/21 Additional Source Comments The information contained in this document represents components of the legal health record. It is not the complete legal health record.[facility]
--- OUTSIDE RECORDS SUMMARY | 2025-05-06 08:38 | XMS_ITS | Encounter Summary ---
Author Organization [facility] Address [address] [place] [address] Phone Care Team Providers Care Pipe Caulker Name Role Phone Issa Munoz MD Primary Care Provider [phone] Encounter Details Date Type Department Care Team (Late st Contact Info) Description 07/23/2021 Procedure Pass BWF Periop 1st floor [address] [place] [address] Social History Tobacco Use Types Packs/Day Years [...] 07/23/2021 11:00 PM Nimisha Hill RN * [place] Suicide Severity Rating Scale (Screener/Recent Self-Report) Question [...] on filedocumented in this encounter Care Teams Pipe Caulker Relationship Specialty Start Date End Date Issa Munoz MD [address] [place] [address] [place] [address] PCP - General Internal Medicine 05/23/21 documented as of this encounter Additional Source Comments The information contained in this document represents components of the legal health record. It is not the complete legal health record.[facility]
== END 2025-05-06 08:19 | disposition home or self-care (01) ==
LOC: HO.HMGCX 08:18
DX: R19.8 Other specified symptoms and signs involving the digestive system and abdomen (principal); Z82.49 Family history of ischemic heart disease and other diseases of the circulatory system
CPT/HCPCS: 76706

== ENCOUNTER → 2025-05-06 08:20 | Outpatient (BNV) | payer MEDICARE, SELFPAY | PROVIDERS: Visit Provider Specialist | DX: Z82.49 Family history of ischemic heart disease and other diseases of the circulatory system (principal) | CPT/HCPCS: 76706 ==

== ENCOUNTER 2025-05-16 07:40 | Outpatient (AMB) | payer MEDICARE, SELFPAY ==
--- OUTSIDE RECORDS SUMMARY | 2024-04-13 06:00 | XMS_ITS ---
Author Organization [facility] Address [address] [place] [address] Care Team Providers Care Hairspring Ii Inspector Name Role Phone Issa Munoz MD Primary Care Provider Jv Salinas Jr [phone] REASON FOR VISIT screening colon Encounters Encounter Location Date Provider Diagnosis [facility] [place] [address] [place] [id number] 04/13/2024 Jv Lees Jr Colon cancer screening [...] REGINA DAVIS NDOB:[birth year] (64 yo M)Acc No.[id number]:04/13/2024 COLON WITH MAC Patient: REGINA REYNA Santi Provider: Sebastián Lees MD :1960 A ge:63 Y S ex:Male Date:04/13/2024 Address:[address] [id number] Pcp:Issa Munoz MD Subjective: * Chief Complaints: * 1 . Screening colon. * Medical History: Objective: * Vitals: Assessment: * Assessment: 1. C olon cancer screening - Z12.11 (Primary) 2 . F H: colon polyps - Z83.719 3 . C olon polyps - K63.5 Plan: * Treatment: * Procedure Codes: 4 5385 LESION REMOVAL COLONOSCOPY, 62359 COLONOSCOPY AND BIOPSY, Modifiers: 59 * * The named appointment provid er may or may not be the originator of this progress note, and it is not deemed complete until electronically signed by the appointment provider. Sign off status: Pending * Provider: Sebastián Lees MD Date: 0 04/13/2024 Generated for Cordell patterson/[place] on: 07:44 AM EDT
[2025-05-16 07:42] VITALS: BP 94/50; PULSE 64; RESP 16; TEMP 36.7; O2SAT 99; BMI 21.5
--- NOTE | 2025-05-16 07:42 | AM.OFFWIN_ITS ---
Intake Vital Signs 3 05/16/25 07:42 Height 5 ft 10 in Weight 150 lb BMI 21.5 BP 94/50 L Blood Pressure Location Lt brachial Position Sitting Respiration 16 Pulse 64 Pulse Source Pulse Oximeter Temp 98.1 F Temp Source Oral Pulse Oximetry (%) 99 Oxygen Delivery Method Room Air Intake Visit Reasons: EP-lt side groin possible hearnia Intake Note: Pt is here today noticed two lumps on Lt side of groin Patient Tobacco Use Status: Never used Tobacco Allergies No Known Allergies Allergy (Verified 05/03/25 15:24) HPI HPI Comments 2 History of Present Illness0 Details 64 y/o Male patient who presents to the walk in clinic with c/o Left Groin Bulging and tenderness. Reports that Friday evening he noticed/[place] small Tender lumps on left groin. States by Friday the lumps were gone and pain resolved. Reports Feeling the lumps again Friday and this morning. Denies any Urinary symptoms. H/o Prostate CA with Total Prostatectomy 4 years ago. He does follow with Urology yearly and so far all testings have been negative. Denies any recent heavy lifting. No prior h/o Groin Hernia. [facility] Medical History (Updated 05/16/25 @ 07:59 by Megan Bedoya NP) Lt groin pain Depression Prostate cancer Surgical History Hx of bilateral cataract extraction History of surgery Hx of right knee surgery H/O colonoscopy History of prostate surgery History of varicocele Family History Mother No problems noted. Father No problems noted. 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 Cognitive needs: No Hearing needs: No Vision needs: No Review of Systems Const All systems reviewed & are unremarkable except as noted in HPI and below Physical Exam Vital Signs: Last Vital Signs Temp 98.1 F 05/16/25 07:42 Pulse 64 05/16/25 07:42 Resp 16 05/16/25 07:42 BP 94/50 L 05/16/25 07:42 Pulse Ox 99 05/16/25 07:42 Oxygen Delivery Method Room Air 05/16/25 07:42 BMI result Body Mass Index 21.5 Const General: no acute distress Nutritional Appearance: well nourished Orientation/consciousness: patient oriented x3 General: Yes no CVA tenderness Penis: normal penis Meatus: meatus normal Scrotum: scrotum normal, not edematous, not erythematous, no scrotal swelling and no varicoceles Male genitals images: 2 1. Palpable Small lump?lymph nodes, mild TTP. 2. Palpable Small lump?lymph nodes, mild TTP. Back/Spine/Pelvis Back: no CVA tenderness Neuro General: patient oriented x3, gait normal and moves all extremities Psych Speech and movement: Normal speech and movement present Results AMB Urinalysis, Automated 2 UA Leukoctes 0 Jd/uL Last Edit by Shantelle Joseph CMA on 05/16/25 08:13 UA Nitrite Negative Last Edit by Shantelle Joseph, BELINDA on 05/16/25 08:13 UA Urobilinogen 0.2 mg/dL Last Edit by Shantelle Joseph CMA on 05/16/25 08:13 UA Protein 0 mg/dL Last Edit by Shantelle Joseph, BELINDA on 05/16/25 08:13 UA pH 6.0 Last Edit by Shantelle Joseph CMA on 05/16/25 08:13 UA Blood 0 Niles/uL Last Edit by Shantelle Joseph CMA on 05/16/25 08:13 UA Specific [place] 1.020 Last Edit by Shantelle Joseph, BELINDA on 05/16/25 08:13 UA Ketone Negative Last Edit by Shantelle Joseph CMA on 05/16/25 08:13 UA Bilirubin 0 mg/dL Last Edit by Shantelle Joseph, BELINDA on 05/16/25 08:13 UA Glucose 0 mg/dL Last Edit by Shantelle Joseph CMA on 05/16/25 08:13 Assessment & Plan Assessment & Plan (1) Lt groin pain: Code(s): R10.32 - Left lower quadrant pain Plan: DDx's: Hernia vs Lymphadenopathy vs UTI. Urinalysis Negative - will still send Urine for C&S. Ordered Pelvic/Scrotum Ultrasound. May take NSAIDs for pain relief. Orders: Orders 2 AMB Urinalysis Automated Today Z13.9 - Encounter for screening, unspecified US scrotum Today R10.32 - Left lower quadrant pain US pelvic limited Today R10.32 - Left lower quadrant pain UA CC w/rflx Micro + Cult Today R10.32 - Left lower quadrant pain Coding Level of Care Code Est Pt Level 4 (86062) Diagnoses Lt groin pain R10.32 Time Spent (min) 20
--- OUTSIDE RECORDS SUMMARY | 2025-05-16 07:44 | XMS_ITS | Clinical Summary ---
Author Organization [facility] Address [address] [place] [address] Phone Care Team Providers Care Shift Mechanic Name Role Phone Issa Munoz MD Primary Care Provider [phone] Allergies No known active allergies Medications therapeutic [...] Devices Not on file [facility] POS Advance Directives For more information, please contact: [phone] (9AM - 5PM Jessica/[facility], Friday-Friday) Documents on File Type Date Recorded Patient Production Cost Estimator Expl anation Healthcare Proxy 07/23/2021 * Full Code (Latest Code Status on File) Date Activated Date Inactivated Comments 07/23/2021 9:36 PM Question Answer Comments Code Status Confirmed With: Other (specify below ) Care Teams Shift Mechanic Relationship Specialty Start Date End Date Issa Munoz MD [address] [place] [address] [place] [address] PCP - General Internal Medicine 05/23/21 Additional Source Comments The information contained in this document represents components of the legal health record. It is not the complete legal health record.[facility]
--- OUTSIDE RECORDS SUMMARY | 2025-05-16 07:44 | XMS_ITS | Encounter Summary ---
Author Organization [facility] Address [address] [place] [address] Phone Care Team Providers Care Flat Breakdown Processor Name Role Phone Issa Munoz MD Primary Care Provider [phone] Encounter Details Date Type Department Care Team (Late st Contact Info) Description 07/23/2021 Procedure Pass BWF Periop 1st floor [address] [place] [address] Social History Tobacco Use Types Packs/Day Years [...] 07/23/2021 11:00 PM Nimisha Hill RN * [place] Suicide Severity Rating Scale (Screener/Recent Self-Report) Question [...] on filedocumented in this encounter Care Teams Flat Breakdown Processor Relationship Specialty Start Date End Date Issa Munoz MD [address] [place] [address] [place] [address] PCP - General Internal Medicine 05/23/21 documented as of this encounter Additional Source Comments The information contained in this document represents components of the legal health record. It is not the complete legal health record.[facility]
--- OUTSIDE RECORDS SUMMARY | 2025-05-16 07:44 | XMS_ITS | Patient Health Record ---
Author Organization [facility] Address [address] [place] [address] Care Team Providers Care Mid Level Game Designer Name Role Phone Alexander MORRIS, Issa Primary [...] at 5:00 p.m. the day before the procedure; Duration: 1 day 02/18/2024 Active Immunizations Vaccine Route Administration Date Status Comme nts Influenza Unknown 06/10/2018 Administered Influenza Unknown 05/27/2023 Administered Problems Problem Type SNOMED Code ICD Code Onset Dates Problem Status W/U Status Risk Notes Problem Colon cancer screening (723428061) Colon cancer screening (Z12.11) Active confirmed Problem Pre-procedure evaluation check (946552367) Encounter for other preprocedural examination (Z01.818) Active confirmed Problem Family history of polyp of colon (279535492) Family history of colonic polyps (Z83.71) Active confirmed Plan Of Treatment Future Test Test Name Order Date COLONOSCOPY 12/16/2013 COLONOSCOPY 01/13/2019 COLONOSCOPY 02/18/2024 Insurance Providers Payer Name Payer Address Payer Phone Subscriber Number Group Number Insured Name Patient Relationship to Insured Coverage Start Date Coverage End Date [facility] [address] [place] [address] [phone] [id number] 400 REGINA DAVIS Self - patient is the insured Medical (General) History Medical History History ICD Code Depression Colonoscopy 05/22, five-year followup fo r family history of polyps cataracts Prostate cancer Surgical History Surgery Date(Month/Year) knee surgery-right varocele Bilateral cataract repairs Prostatectomy 07/24
== END 2025-05-16 09:05 | disposition home or self-care (01) ==
PROVIDERS: Visit Provider Nurse Practitioner Family
DX: Z13.9 Encounter for screening, unspecified (principal); R10.32 Left lower quadrant pain

== ENCOUNTER 2025-05-16 07:40 | Outpatient (REF) | payer MEDICARE, SELFPAY | END 2025-05-16 07:41 | disposition home or self-care (01) | LOC: HO.LAB 07:40 | PROVIDERS: Visit Provider Nurse Practitioner Family | DX: R10.32 Left lower quadrant pain (principal); Z13.89 Encounter for screening for other disorder | CPT/HCPCS: 81003; 87086; 99212 ==

== ENCOUNTER 2025-05-25 15:16 | Outpatient (REF) | payer MEDICARE, SELFPAY ==
--- OUTSIDE RECORDS SUMMARY | 2024-04-13 06:00 | XMS_ITS ---
Author Organization [facility] Address [address] [place] [address] Care Team Providers Care Intellectual Property Lawyer Name Role Phone Issa Munoz MD Primary Care Provider Jv Salinas Jr [phone] REASON FOR VISIT screening colon Encounters Encounter Location Date Provider Diagnosis [facility] [address] [place] [phone] 04/13/2024 Jv Lees Jr Colon cancer screening Z12.11 ; FH: colon polyps Z83.719 and Colon polyps K63.5 Assessments Encounter Date Diagnosis (ICD Code) Assessment Notes Treatment Notes Treatment Clinical Notes Section Notes 04/13/2024 Colon cancer screening (ICD-10 - Z12.11) 04/13/2024 FH: colon polyps (ICD-10 - Z83.719) 04/13/2024 Colon polyps (ICD-10 - K63.5) Plan Of Treatment No Information Progress Notes * REGINA DAVIS NDOB:[birth year] (64 yo M)Acc No.[id number]:04/13/2024 COLON WITH MAC Patient: REGINA REYNA Santi Provider: Sebastián Lees MD :1960 A ge:63 Y S ex:Male Date:04/13/2024 Address:[address] [id number] Pcp:Issa Munoz MD Subjective: * Chief Complaints: * 1 . Screening colon. * Medical History: Objective: * Vitals: Assessment: * Assessment: 1. C olon cancer screening - Z12.11 (Primary) 2 . F H: colon polyps - Z83.719 3 . C olon polyps - K63.5 Plan: * Treatment: * Procedure Codes: 4 5385 LESION REMOVAL COLONOSCOPY, 69119 COLONOSCOPY AND BIOPSY, Modifiers: 59 * * The named appointment provid er may or may not be the originator of this progress note, and it is not deemed complete until electronically signed by the appointment provider. Sign off status: Pending * Provider: Sebastián Lees MD Date: 0 04/13/2024 Generated for Cordell patterson/[place] on: 09:31 PM EDT
--- OUTSIDE RECORDS SUMMARY | 2025-05-25 21:31 | XMS_ITS | Patient Health Record ---
Author Organization [facility] Address [address] [place] [address] Care Team Providers Care Arch Support Technician Name Role Phone Alexander MORRIS, Issa Primary [...] Status Risk Notes Problem Colon cancer screening (511625967) Colon cancer screening (Z12.11) Active confirmed Problem Pre-procedure evaluation check (932015210) Encounter for other preprocedural examination (Z01.818) Active confirmed Problem Family history of polyp of colon (870534452) Family history of colonic polyps (Z83.71) Active confirmed Plan Of Treatment Future Test Test Name Order Date COLONOSCOPY 12/16/2013 COLONOSCOPY 01/13/2019 COLONOSCOPY 02/18/2024 Insurance Providers Payer Name Payer Address Payer Phone Subscriber Number Group Number Insured Name Patient Relationship to Insured Coverage Start Date Coverage End Date [facility] [address] [place] [address] [phone] [id number] 400 REGINA DAVIS Self - patient is the insured Medical (General) History Medical History History ICD Code Depression Colonoscopy 05/22, five-year followup fo r family history of polyps cataracts Prostate cancer Surgical History Surgery Date(Month/Year) knee surgery-right varocele Bilateral cataract repairs Prostatectomy 07/24
--- OUTSIDE RECORDS SUMMARY | 2025-05-25 21:31 | XMS_ITS | Encounter Summary ---
Author Organization [facility] Address [address] [place] [address] Phone Care Team Providers Care Matrix Worker Name Role Phone Issa Munoz MD Primary Care Provider [phone] Encounter Details Date Type Department Care Team (Late st Contact Info) Description 07/23/2021 Procedure Pass BWF Periop 1st floor [address] [place] [address] Social History Tobacco Use Types Packs/Day Years [...] 07/23/2021 11:00 PM Nimisha Hill RN * [place] Suicide Severity Rating Scale (Screener/Recent Self-Report) Question [...] on filedocumented in this encounter Care Teams Matrix Worker Relationship Specialty Start Date End Date Issa Munoz MD [address] [place] [address] [place] [address] PCP - General Internal Medicine 05/23/21 documented as of this encounter Additional Source Comments The information contained in this document represents components of the legal health record. It is not the complete legal health record.[facility]
--- OUTSIDE RECORDS SUMMARY | 2025-05-25 21:31 | XMS_ITS | Clinical Summary ---
Author Organization [facility] Address [address] [place] [address] Phone Care Team Providers Care Teletype Or Varitype Keyboard Operator Name Role Phone Issa Munoz MD Primary Care Provider [phone] Allergies No known active allergies Medications therapeutic [...] Devices Not on file [facility] HMO POS [facility] HMO POS [facility] HMO POS [facility] HMO POS [facility] HMO POS [facility] HMO POS Advance Directives For more information, please contact: [phone] (9AM - 5PM Jessica/[facility], Friday-Friday) Documents on File Type Date Recorded Patient Photographer Expl anation Healthcare Proxy 07/23/2021 * Full Code (Latest Code Status on File) Date Activated Date Inactivated Comments 07/23/2021 9:36 PM Question Answer Comments Code Status Confirmed With: Other (specify below ) Care Teams Teletype Or Varitype Keyboard Operator Relationship Specialty Start Date End Date Issa Munoz MD [address] [place] [address] [place] [address] PCP - General Internal Medicine 05/23/21 Additional Source Comments The information contained in this document represents components of the legal health record. It is not the complete legal health record.[facility]
== END 2025-05-25 15:17 | disposition home or self-care (01) ==
LOC: HO.US 15:16
PROVIDERS: Visit Provider Nurse Practitioner Family
DX: R10.32 Left lower quadrant pain (principal)
CPT/HCPCS: 76857

== ENCOUNTER → 2025-05-25 15:20 | Outpatient (BNV) | payer MEDICARE, SELFPAY | PROVIDERS: Visit Provider Radiology Diagnostic Radiology | DX: R59.0 Localized enlarged lymph nodes (principal) | CPT/HCPCS: 76857 ==

== ENCOUNTER 2025-07-07 08:47 | Outpatient (AMB) | payer MEDICARE, SELFPAY ==
[2025-07-07 09:03] VITALS: BP 90/60; PULSE 72; O2SAT 97; BMI 22.1
--- NOTE | 2025-07-07 09:03 | MHC.OFFVIS ---
Vital Signs 07/07/25 09:03 Height 5 ft 10 in Weight 154 lb BMI 22.1 BP 90/60 Blood Pressure Location Lt brachial Position Sitting Pulse 72 Pulse Source Pulse Oximeter Pulse Oximetry (%) 97 Oxygen Delivery Method Room Air Intake Visit Reasons: 3 mo follow up Radiology Receptionist Required: No Accompanied by: Spouse Allergies No Known Allergies Allergy (Verified 07/07/25 09:05) HPI Comments Details: 65 year old male is here for a review of his in lab sleep study results. Marcia his helps with history. PSG c/w no evidence of sleep apnea, AHI is 4 and O2 nadirs 92-96%, he has mild snoring and a few arousals. He goes to bed at 9pm and wakes up at 5am, always has one bathroom break. Pt. states his nudges him to wake up because he stops breathing at night. He pauses and gasp for air. He may be a good candidate for an oral mandibular device if sleep continues to be interrupted with disruptions and pt education is provided for consult to sleep dentistry. He uses a wedge pillow and has trained himself to sleep on his side or on his stomach to avoid apneic events. He snores, wakes himself up and continues to have morning headaches, due to congestion and allergies. He denies bruxism, clenching of Jaw. RLS symptoms, he has an uncomfortable sensation in his calves bilaterally prior to bed, and he has to move his feet to get comfortable. It is bothersome can keep him up all night, as he feels anxious when he is unable to achieve proper quality and duration of sleep. When he tries to nap during the day, his legs start up with this discomfort, twitching and flying out of his upper extremity. He notices his symptoms will increase if he is dehydrated. He denies numbness, tingling, cramping, denies radiation, flailing, thrashing behaviors. His mood is anxious and he exercises twice a day, in the hopes of tiring out his mental state and shutting off his mind. Memory and diet are stable. He declines sleep aids and melatonin to induce sleep. PFSH Medical History Lt groin pain Depression Prostate cancer Surgical History Hx of bilateral cataract extraction History of surgery Hx of right knee surgery H/O colonoscopy History of prostate surgery History of varicocele Family History Mother No problems noted. Father No problems noted. 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 Cognitive needs: No Hearing needs: No Vision needs: No Physical Exam Vital Signs: Last Vital Signs Pulse 72 07/07/25 09:03 BP 90/60 07/07/25 09:03 Pulse Ox 97 07/07/25 09:03 Oxygen Delivery Method Room Air 07/07/25 09:03 BMI result Body Mass Index 22.1 Const General: cooperative and comfortable Nutritional Appearance: average body habitus Orientation/consciousness: patient oriented x3 HEENT Face and sinus: Yes face symmetric Teeth and gingiva: other (mallampti score of 3) Eyes Pupils: Equal, round and reactive pupils present Neck Neck: Yes full ROM Resp Effort & Inspection: normal respiratory effort and able to speak in complete sentences Neuro General: patient oriented x3 and moves all extremities Cranial nerves: Yes Equal, round and reactive pupils present, Yes Normal accommodation reflex present, Yes Normal facial strength present, Yes Midline tongue present, Yes Ability to bilaterally rotate head present and Yes Ability to bilaterally elevate shoulders present Cognition (Neuro): normal cognition Gait exam (Neuro): Normal gait present Motor exam (neuro): 5/5 motor strength present throughout and Normal motor muscle tone present throughout Deep tendon reflexes (DTR's): Right triceps reflex intensity grade: 2+, Left triceps reflex intensity grade: 2+, Rt Biceps (C5, C6): 2+, Left biceps reflex intensity grade: 2+, Right brachioradialis reflex intensity grade: 2+, Left brachioradialis reflex intensity grade: 2+, Right patellar reflex intensity grade: 2+ and Left patellar reflex intensity grade: 2+ Coordination: [id number] test normal Psych Appearance: grossly normal Mental Status: mental status grossly normal Thought process: Normal thought process present Thought content: Normal thought content present Results Reviewed Results Reviewed: PSG c/w no evidence of sleep apnea, AHI is 4 and O2 nadirs 92-96%, he has mild snoring and a few arousals. Assessment & Plan Assessment & Plan (1) Excessive daytime sleepiness: Code(s): G47.19 - Other hypersomnia Category: Medical (2) Loud snoring: Code(s): R06.83 - Snoring Category: Medical (3) RLS (restless legs syndrome): Code(s): G25.81 - Restless legs syndrome Category: Medical Plan PSG reviewed with pt, good sleep efficiency, mild snoring and AHI is 4, oxygen nadirs 92-96%. Snoring will refer to Sleep dentistry for evaluation of airway and oral appliance / mandibular device to adjust air way. Labs reviewed with pt. ferritin is normal, B12 is normal. RLS symptoms, start 200-400mg magnesium daily at bedtime. B12 1000units sublingually for chronic fatigue. FH+ for cancer all siblings and he has chronic/ multiple episodes of EBV/MONO. Patient Instructions: Sleep Hygiene provided: set a scheduled bedtime and wake time to help regulate the circadian rhythm and balance the release of pituitary hormones. Sleep in a dark room, temperatures below 68 degrees, and no devices n bed. Limit caffeinated products 6 hours prior to bed, and limit fluids 2-4 hours prior to bed. Gentle night yoga, diffusing essential oils, and playing soft music can be relaxing. Pt will think about the Sleep dentistry referral and call the office or message me on the portal for the consult. Coding Level of Care Code Est Pt Level 4 (02064) Diagnoses Excessive daytime sleepiness G47.19 Loud snoring R06.83 RLS (restless legs syndrome) G25.81
--- OUTSIDE RECORDS SUMMARY | 2025-07-07 09:32 | XMS_ITS | Encounter Summary ---
Author Organization [facility] Address [address] [place] [address] Phone Care Team Providers Care Medium Cycle Salesperson Name Role Phone Issa Munoz MD Primary Care Provider [phone] Encounter Details Date Type Department Care Team (Late st Contact Info) Description 07/23/2021 Procedure Pass BWF Periop 1[address] floor [address] [place] [address] Social History Tobacco Use Types Packs/Day Years [...] 07/23/2021 11:00 PM Nimisha Hill RN * [place] Suicide Severity Rating Scale (Screener/Recent Self-Report) Question [...] on filedocumented in this encounter Care Teams Medium Cycle Salesperson Relationship Specialty Start Date End Date Issa Munoz MD [address] [place] [address] [place] [address] PCP - General Internal Medicine 05/23/21 documented as of this encounter Additional Source Comments The information contained in this document represents components of the legal health record. It is not the complete legal health record.[facility]
--- OUTSIDE RECORDS SUMMARY | 2025-07-07 09:32 | XMS_ITS | Clinical Summary ---
Author Organization [facility] Address [address] [place] [address] Phone Care Team Providers Care Qa Engineer Name Role Phone Issa Munoz MD Primary Care Provider [phone] Allergies No known active allergies Medications therapeutic [...] DEPRESSION SCREENING 1971 HEPATITIS C SCREENING 1977 PNEUMOCOCCAL VACCINES (50+ years) (1 of 2 - PCV) 1978 COLOGUARD 2004 COLONOSCOPY 2004 COLORECTAL CANCER SCREENING 2004 FIT TEST 2004 FOBT 2004 SIGMOIDOSCOPY 2004 VIRTUAL COLONOSCOPY 2004 ZOSTER VACCINES (2 of 2) 07/17/2020 05/22/2020 INFLUENZA VACCINE (#1) 2025 , 05/10/2020, 05/21/2019, Additional history exists COVID-19 VACCINE ( season) 2025 06/21/2021, 12/07/2020, 11/09/2020 Adult Td,Tdap [...] Devices Not on file Insurance O POS O POS [facility] HMO POS [facility] POS [facility] [place]MO [place] [address] [place], [place] [address]O [place] [address] [place], [place] [address] [address] [place] [address] HMO POS Advance Directives For more information, please contact: [phone] (9AM - 5PM Jessica/[facility], Friday-Friday) Documents on File Type Date Recorded Patient Hotel Maintenance Worker Expl anation Healthcare Proxy 07/23/2021 * Full Code (Latest Code Status on File) Date Activated Date Inactivated Comments 07/23/2021 9:36 PM Question Answer Comments Code Status Confirmed With: Other (specify below ) Care Teams Qa Engineer Relationship Specialty Start Date End Date Issa Munoz MD [address] [place] [address] [place] [address] PCP - General Internal Medicine 05/23/21 Additional Source Comments The information contained in this document represents components of the legal health record. It is not the complete legal health record.[facility]
== END 2025-07-07 09:51 | disposition home or self-care (01) ==
LOC: HO.HSMS 08:48
PROVIDERS: Visit Provider Physician Assistant Medical
DX: G47.19 Other hypersomnia (principal); R06.83 Snoring; G25.81 Restless legs syndrome
CPT/HCPCS: 99214

== ENCOUNTER → 2025-07-07 08:47 | Outpatient (BNVA) | payer MEDICARE, SELFPAY | PROVIDERS: Visit Provider Physician Assistant Medical | DX: G25.81 Restless legs syndrome (principal); G47.19 Other hypersomnia; R06.83 Snoring | CPT/HCPCS: 99212 ==